=== PATIENT | male | born 1980 | race African-American/Black ===

== ENCOUNTER 2017-04-27 23:23 | Inpatient (IN) ==
[2017-04-27] MEDS ORDERED: ADENOSINE 6 MG/2 ML VIAL ONE ×3 (23:37→23:53)
[2017-04-27] MEDS: METOPROLOL TARTRATE 5 MG/5 ML VIAL IV SCH ×2 (23:40→23:53)
[2017-04-27] MEDS ORDERED: METOPROLOL TARTRATE 5 MG/5 ML VIAL IV ONE (23:45)
[2017-04-27] MEDS ORDERED: ADENOSINE 6 MG/2 ML VIAL IV STA ×2 (23:53)
--- NOTE | 2017-04-27 23:58 | Emergency Department Note ---
Arrival - Arrival Chief Complaint: Arrhythmia/Palpitations Stated Complaint: shortness of breath ED Nursing Triage Note: Patient to triage with c/o intermittent right upper chest pressure, "like gas pain" that has been going on for longer than 3 days and patient states that it is hard to breath at times. Patient's heart rate noted to be 148 while VS are taken in triage. EKG done in triage for this reason. Mode of Arrival: Ambulatory Limitations: No Limitations Source: Patient Time Seen by Provider: 04/27/17 23:53 - History of Present Illness HPI Narrative: This 36-year-old black male presents with a history of intermittent rapid heartbeat associated with right sided chest pressure without cough, hemoptysis, nausea, or vomiting. While in a rapid rate he does break out in a sweat however. He presents tonight for complaints of sustained rapid with nausea and dyspnea. The patient does have a history of sarcoidosis but no history of sarcoid related cardiac disease. Onset (ago): day(s) (Patient presents 3 days post onset of symptoms) Allergies/Adverse Reactions: Allergies Allergy/AdvReac Type Severity Reaction Status Date / Time Seafood AdvReac Unknown/Unable Verified 04/27/17 23:33 to obtain Home Medications: Home Medications Medication Instructions Recorded Confirmed Type Albuterol Sulfate [Ventolin HFA] 1 puff INH QID PRN 05/19/16 04/28/17 History Review of System - Review of System 12 point system: reviewed and no additional remarkable complaints except as stated - Review of System Constitutional: Present: as per HPI Respiratory: Present: as per HPI Cardiovascular: Present: as per HPI Gastrointestinal: Present: as per HPI Medical,Surgical,& Family Hx - Medical History Respiratory: History of: Respiratory Problems (sarcoidosis) - Social History Smoking Status: Never smoker Frequency of Alcohol Use: None Type of Drug Use: None Exam Physical Examination: GENERAL: Well developed, well nourished black male HEENT: Normocephalic. No trauma. Moist mucous membranes. EOMI. PERRLA. ENT NML NECK: Supple. No adenopathy. CARDIAC: Regular. No murmurs. Heart rate 145 CHEST: Clear to auscultation. No respiratory distress. O2 sat 96% ABDOMEN: Soft. Nontender. Active bowel sounds. EXTREMITIES: No trauma. Normal ROM. No pedal edema. SKIN: Forehead diaphoresis. No rash. NEURO: Alert. Neuro intact no focal deficits. Vital Signs: Vital Signs Temperature 96.9 F L 04/27/17 23:25 Pulse Rate 148 H 04/27/17 23:25 Respiratory Rate 20 04/27/17 23:37 Blood Pressure 131/112 04/27/17 23:25 O2 Sat by Pulse Oximetry 96 04/27/17 23:25 Course - Reevaluation(s) Reevaluation #1: Discussed with patient the results of his studies and the necessity of hospitalization for further evaluate his problems. - Consultations Consultation #1: Discussed with hospitalist who will admit for further evaluation and treatment. Results - Labs CBC & BMP: 04/27/17 23:39 04/27/17 23:39 Labs: I reviewed the laboratory and noted the elevated BMP - Impressions EKG #1: SVT at 145 with evidence of lateral and inferior ischemia characterized by T-wave inversion. Notable evidence of old anterior SD. EKG #2: Post adenosine: Sinus rhythm with occasional PVC. Left atrial enlargement. Old septal SD with diffuse nonspecific ST changes with no acute injury pattern noted. - Diagnostic Findings Procedure: Chest x-ray: image reviewed by me, report reviewed by me ( Cardiomegaly with evidence of pulmonary edema), CT: image reviewed by me, report reviewed by me (CTA: No evidence of PTE but significant severe adenopathy throughout the chest and neck) Disposition Clinical Impression: New-onset SVT, Sarcoidosis Case discussed with: patient Disposition: Still a Patient Condition: Guarded Time of Disposition: 02:08
[2017-04-28] MEDS: METOPROLOL TARTRATE 5 MG/5 ML VIAL IV SCH
[2017-04-28 00:05] LABS: Basophils % 0.6 % (0.0-0.8); Eosinophils # 0.1 10*3/uL (0.0-0.87); Eosinophils % 2.4 % (0.00-10.9); Hematocrit 40.1 VOL% (42.0-52.0); Hemoglobin 13.7 GM/DL (14.0-18.0); Immature Granulocytes % 0.4 %; Immature Granulocytes Absolute 0.02 #; Lymphocytes # 1.4 10*3/uL (1.4-4.0); Mean Corpuscular HGB Conc 34.2 GM/DL (32-36); Mean Corpuscular Hemoglobin 29 PG (27-34); Mean Corpuscular Volume 86.1 FL (87-102); Mean Platelet Volume 10.8 FL (9.6-12.0); Monocytes # 0.6 10*3/uL (0.11-0.8); Monocytes % 11.6 % (1.7-12.7); Neutrophils # 2.9 10*3/uL (1.4-7.4); Platelet Count 261 T/CUMM (130-400); Red Blood Count 4.66 MC/CUMM (3.8-5.5); Red Cell Distribution Width 13.6 % (9.3-17.3); White Blood Count 5.1 T/CUMM (4-12)
[2017-04-28] MEDS ORDERED: FUROSEMIDE 40 MG/4 ML VIAL IV STA (00:15)
[2017-04-28] MEDS ORDERED: METOPROLOL TARTRATE 5 MG/5 ML VIAL IV STA (00:17)
[2017-04-28] MEDS ORDERED: METOPROLOL TARTRATE 5 MG/5 ML VIAL IV ONE ×3 (00:17→10:30)
[2017-04-28 00:22] LABS: Troponin I Only < 0.015 NG/ML (0.00-0.045)
[2017-04-28 00:35] LABS: Albumin 3.9 G/DL (3.4-5.0); Bilirubin,Total 0.8 MG/DL (0.2-1.0); Calcium 9.1 MG/DL (8.5-10.1); Osmolality,Calculated 273.7 MOS/KG (273-304); Potassium 3.8 MMOL/L (3.5-5.1); Thyroid Stimulating Hormone 2.92 uIU/ml (0.358-3.74); Total Protein 8.6 G/DL (6.4-8.3)
[2017-04-28 00:51] LABS: D-Dimer 1.6 MG/L FEU; PT Patient Result 10.9 SECS
[2017-04-28] MEDS ORDERED: FUROSEMIDE 100 MG/10 ML VIAL ONE (01:39)
--- NOTE | 2017-04-28 02:33 | Hospitalist History & Physical ---
Assessment and Plan - Time spent with patient Time spent with patient: Greater than 30 minutes (1) Sarcoidosis Status: Acute Assessment and plan: Admit to hospitalist service Consult pulmonary Start community-acquired pneumonia coverage Reevaluate lymphadenopathy Consider steroids Obtain echocardiogram Consult cardiology regarding SVT episode Current Visit: Yes (2) Mediastinal lymphadenopathy due to sarcoidosis Status: Acute Current Visit: Yes (3) SVT (supraventricular tachycardia) Status: Acute Assessment and plan: Now in NSR at 80s Current Visit: Yes (4) Hypertension Status: Chronic Current Visit: Yes Qualifiers: Hypertension type: essential hypertension Qualified Code(s): I10 - Essential (primary) hypertension History of Present Illness Chief complaint: sob History of present illness: Mr. Miner is a 36 year old male presents with a history of intermittent rapid heartbeat associated with right sided chest pressure without cough, hemoptysis, nausea, or vomiting. While in a rapid rate he does break out in a sweat however. He presents tonight for complaints of sustained rapid with nausea and dyspnea. The patient does have a history of sarcoidosis but no history of sarcoid related cardiac disease. He was treated with adenosine and beta blockers for treatment of his SVT and has converted to a normal sinus rhythm with a pulse in the 80s. During the course of his workup in the emergency department he underwent a CT of the chest with IV contrast to rule out PE. There was no evidence of pulmonary embolism however changes consistent with sarcoid with questionable pneumonia and significant lymphadenopathy were noted. The patient's being admitted to the hospital to treat his worsening and progressive shortness of breath. He is followed by a taxi dancer at [facility] for sarcoidosis. He is on methotrexate and folic acid. He denies any fever or chills. Reports a slight productive cough. States his shortness of breath has been worsening over the last 3-4 days. He was not aware he was in SVT but did have chest discomfort that has now resolved. Home Medications Medication Instructions Recorded Confirmed Type Albuterol Sulfate [Ventolin HFA] 1 puff INH QID PRN 05/19/16 04/28/17 History Allergies Allergy/AdvReac Type Severity Reaction Status Date / Time Seafood AdvReac Unknown/Unable Verified 04/27/17 23:33 to obtain Medical,Surgical,& Family Hx - Medical History Respiratory: History of: Respiratory Problems (sarcoidosis) - Family History Family History: Reports;: Family Hypertension - Social History Smoking Status: Never smoker Frequency of Alcohol Use: None Type of Drug Use: None Marital Status: Single Lives With:: Alone Functional capacity: independent ambulation 12 point system: reviewed and no additional remarkable complaints except as stated - Respiratory Respiratory: Present: as per HPI, cough, dyspnea, dyspnea on exertion Exam - Constitutional Vitals: Period Temp Pulse Resp BP Sys/Jackson Pulse Ox Last 24 Hr 96.9 F-96.9 F 148-148 20-20 131-131/112-112 96 Exam: Constitutional System: No distress. No tremulousness. Head: Normocephalic, atraumatic. Ears, Nose and Throat System: No pain or tenderness. No epistaxis or discharge Eyes System: Pupils equal, round, and reactive. Extraocular muscles intact. Neck: Supple, without adenopathy, No jugular venous distention. No thyromegaly, neck mass, or prior surgery apparent. Respiratory System: Chest clear to auscultation. Cardiovascular System: Heart with regular rate and rhythm. No murmur. GI System: Abdomen soft, nontender. Normo active bowel sounds present. Musculoskeletal System: limbs with no pedal edema. Full distal pulses. Neurological System: No discernable sensory deficit. No aphasia Psychiatric System: Conversation is rational Results - Labs CBC & BMP: 04/27/17 23:39 04/27/17 23:39 Lab Results: I have reviewed the past 24 hour labs - Diagnostic Findings Procedure: Chest x-ray: report reviewed by me, image reviewed by me, CT - chest : report reviewed by me, image reviewed by me
[2017-04-28] MEDS ORDERED: ONDANSETRON 4 MG/2 ML VIAL IV PRN (02:36)
[2017-04-28] MEDS ORDERED: ZALEPLON 5 MG CAPSULE PO PRN (02:36)
[2017-04-28] MEDS ORDERED: ACETAMINOPHEN 325 MG TABLET PO PRN (02:36)
[2017-04-28] MEDS ORDERED: AZITHROMYCIN 250 MG TABLET PO ONE (02:39)
[2017-04-28 02:40] LABS: Apearance,Urine CLEAR (Clear); Bilirubin,Urine Negative (Negative); Blood, Urine Negative (Negative); Glucose,Urine (UA) Negative (Negative); Ketones,Urine Negative (Negative); Mucus,Urine Occasional /LPF (Occasional); Nitrite,Urine Negative (Negative); Protein,Urine Negative; RBC,Urine <1 /HPF (0-4); Squamous Epithelial Cell,Urine Occasional /HPF (0-10); Urine Color Straw (Yellow); Urine Specific Gravity 1.012 (1.001-1.035); Urine Urobilinogen < 2.0 EU/DL (0.2-1.0); WBC,Urine <1 /HPF (0-6)
[2017-04-28] MEDS ORDERED: ALBUTEROL/IPRATROPIUM 3 ML NEB RESP TX PRN ×2 (02:40)
[2017-04-28 02:47] LABS: Barbiturates Screen,Urine Negative (Negative); Benzodiazepines Screen,Urine Negative (Negative); Cannabinoid Screen,Urine Negative (Negative); Opiate Screen,Urine Negative (Negative); Phencyclidine Screen,Urine Negative (Negative)
[2017-04-28] MEDS ORDERED: AZITHROMYCIN 250 MG TABLET ONE (03:21)
[2017-04-28] MEDS: cefTRIAXone 1,000 MG in SODIUM CHLORIDE 0.9% 100 ML IV SCH (03:59)
[2017-04-28 06:10] LABS: Calcium 8.7 MG/DL (8.5-10.1); Osmolality,Calculated 274.7 MOS/KG (273-304); Potassium 3.7 MMOL/L (3.5-5.1); Risk Ratio 6.4; Thyroid Stimulating Hormone 2.96 uIU/ml (0.358-3.74)
--- NOTE | 2017-04-28 07:06 | XRay Report ---
XR chest 1V portable Indication: Shortness of breath Comparison: 23 July 2008 Findings: The heart and mediastinum are stable in size and configuration. The pulmonary vascularity is increased with bilateral increased interstitial lung density and faint alveolar patchy density present. No other lung infiltrates, effusions, pneumothorax or other abnormality is demonstrated. Impression: Findings suggest cardiac decompensation, underlying pneumonia cannot be excluded.. PROCEDURE INTERPRETED AT [facility] DEPARTMENT OF RADIOLOGY Final Report Signed by: Dr. Cam Prater
--- NOTE | 2017-04-28 07:42 | CT Report ---
CT chest pulmonary embolism Indication: Shortness of breath Comparison: None available Technique: Axial CT imaging of the chest is performed with intravenous contrast. Contrast dose is 80 cc of Omnipaque 350. Findings: No thrombus or other abnormality is identified in the pulmonary arteries or veins. The pulmonary vessel caliber is within normal limits. There are multiple enlarged lymph nodes are somewhat difficult to separate in the mediastinum most prominent in the pretracheal and subcarinal areas. Largest subcarinal area is estimated 4.1 x 2.3 cm although the borders are indistinct. Heart and great vessels appear within normal limits. Patchy airspace density is present in both lungs mostly within the lower lobes. Multiple mildly prominent lymph nodes are present in the axilla. Enlarged lymph nodes are present in the upper abdomen around the celiac axis and spleen, incompletely visualized No effusion or pneumothorax is present. Impression: No evidence of pulmonary thromboembolism. Multiple enlarged lymph nodes mostly in the mediastinum and upper abdomen. Airspace density in both lower lobes, could indicate lymphoma. This CT exam was performed using one or more the following dose reduction techniques: Automated exposure control, adjustment of the MA and/or KV according to patient size, or use of iterative reconstruction technique. PROCEDURE INTERPRETED AT [facility] DEPARTMENT OF RADIOLOGY Final Report Signed by: Dr. Cam Prater
--- NOTE | 2017-04-28 08:08 | Pulmonology Consult Note ---
Assessment and Plan (1) Sarcoidosis Status: Acute Assessment and plan: The patient comes in with acute changes with SVT and some shortness of breath. This may all be cardiac and his respiratory status may be stable. He is taking methotrexate once a week. Will just watch for now. Current Visit: Yes (2) SVT (supraventricular tachycardia) Status: Acute Assessment and plan: He is back in a sinus rhythm and will be evaluated by cardiology. Current Visit: Yes (3) Hypertension Status: Chronic Assessment and plan: His blood pressure and heart rate are stable now. Current Visit: Yes Qualifiers: Hypertension type: essential hypertension Qualified Code(s): I10 - Essential (primary) hypertension History of Present Illness Chief complaint: Shortness of breath History of present illness: Mr. Miner is a 36 year old black male has a long history of sarcoidosis and has been on methotrexate once a week. I have not seen him in the office in the past but not recently. He came in with sudden onset of rapid heartbeat and right-sided chest pain. He had a negative CT angiogram. He has not been having fever or coughing up a lot of sputum. He was found to have SVT. He has been converted back to sinus rhythm. He says he is feeling a little better now. He does have adenopathy and some interstitial lung disease from her sarcoid. He has mainly been followed in [place]. Home Medications Medication Instructions Recorded Confirmed Type Albuterol Sulfate [Ventolin HFA] 1 puff INH QID PRN 05/19/16 04/28/17 History Allergies Allergy/AdvReac Type Severity Reaction Status Date / Time Seafood AdvReac Unknown/Unable Verified 04/27/17 23:33 to obtain - Constitutional Constitutional: Absent: chills, fever(s), weight loss - EENT Eyes: Absent: loss of vision Ears: Absent: decreased hearing Nose, mouth and throat: Absent: dysphagia, headache(s), sinus pressure - Cardiovascular Cardiovascular: Present: chest pain at rest, dyspnea, palpitations. Absent: PND - Respiratory Respiratory: Present: cough, dyspnea, pain on inspiration. Absent: hemoptysis, change in phlegm color - Gastrointestinal Gastrointestinal: Absent: abdominal pain, change in bowel habits, dysphagia, nausea, vomiting - Genitourinary Genitourinary: Absent: difficulty urinating, dysuria, hematuria, urinary frequency - Musculoskeletal Musculoskeletal: Absent: arthralgias, muscle weakness - Neurological Neurological: Absent: abnormal speech, focal weakness, numbness, paresthesias - Psychiatric Psychiatric: Absent: anxiety Exam (Pulmonay) H&P - Constitutional Vitals: Period Temp Pulse Resp BP Sys/Jackson Pulse Ox Last 24 Hr 96.9 F-97.1 F 81-148 18-20 131-133/94-112 95-96 General appearance: no acute distress, over weight - Head Head exam: Present: normal inspection, normocephalic - Eye Eye exam: Present: EOMI. Absent: scleral icterus Pupils: Present: ZEKE - ENT ENT exam: Present: normal exam - Neck Neck exam: Present: normal inspection. Absent: lymphadenopathy, thyromegaly - Respiratory Respiratory exam: Present: other (The patient has minimal crackles in the bases) . Absent: accessory muscle use - Cardiovascular Cardiovascular exam: Present: regular rate and rhythm, other (He has some ectopy now.). Absent: gallop, systolic murmur - GI/Abdominal GI/Abdominal exam: Present: normal bowel sounds, soft. Absent: organomegaly, tenderness - Extremities Exam Extremities exam: Absent: calf tenderness, edema - Neurological Exam Neurological exam: Present: alert, oriented X3, CN II-XII intact - Psychiatric Psychiatric exam: Present: normal affect - Skin Skin exam: Present: warm, dry. Absent: rash Medical,Surgical,& Family Hx - Medical History Cardio: History of: Hypertension Psychological: No history of: Depression Respiratory: History of: Asthma, Respiratory Problems (sarcoidosis) - Family History Family History: Reports;: Family Diabetes (dad), Family Heart Disease (mother), Family Hypertension (mother, dad, sister) Denies;: Family Cancer, Family Hematology, Family Psychiatric Problems, Family Stroke - Social History Smoking Status: Never smoker Frequency of Alcohol Use: None Type of Drug Use: None Results - Labs CBC & BMP: 04/27/17 23:39 04/28/17 05:07 - Diagnostic Findings Procedure: Chest x-ray: image reviewed by me, report reviewed by me (His portable film does look a little worse with bilateral changes. It does suggest possible mild overload.), CT - chest: image reviewed by me, report reviewed by me (He does have adenopathy and some interstitial changes consistent with sarcoid.)
[2017-04-28] MEDS ORDERED: LABETALOL 20 MG/4 ML SYRINGE IV ONE (08:09)
[2017-04-28] MEDS: ENOXAPARIN 40 MG/0.4 ML SYRINGE SUBCUT SCH (08:23)
[2017-04-28] MEDS: PANTOPRAZOLE 40 MG TABLET PO SCH (08:23)
--- NOTE | 2017-04-28 08:44 | EKG Report ---
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
--- NOTE | 2017-04-28 08:45 | EKG Report ---
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
[2017-04-28] MEDS ORDERED: METOPROLOL TARTRATE 25 MG TABLET PO SCH (09:00)
--- NOTE | 2017-04-28 09:02 | Cardiology Consult Note ---
Assessment and Plan - Time spent with patient Time spent with patient: Greater than 30 minutes (due to assessment, plan, and documentation) (1) SVT (supraventricular tachycardia) Status: Acute Assessment and plan: See plan of care listed below. Current Visit: Yes (2) Sarcoidosis Status: Chronic Assessment and plan: See plan of care listed below. Current Visit: Yes (3) Hypertension Status: Chronic Assessment and plan: See plan of care listed below. Current Visit: Yes Qualifiers: Hypertension type: essential hypertension Qualified Code(s): I10 - Essential (primary) hypertension (4) Mediastinal lymphadenopathy due to sarcoidosis Status: Acute Assessment and plan: See plan of care listed below. Current Visit: Yes (5) Former smoker Status: Chronic Assessment and plan: See plan of care listed below. Current Visit: Yes (6) Dyslipidemia Status: Acute Assessment and plan: See plan of care listed below. Current Visit: Yes History of Present Illness - Data of Consult Patient: new to practice Consult date: 04/28/17 Requesting Physician: Jean Casas - Consult Narrative Reason for consult: SVT History of present illness: Risk Compliance Analyst: none, new to Dr. Fernandez Account Management Assistant: Dr. Boudreaux Mr. Miner is a 36 year old male with a history of hypertension, sarcoidosis. Risk factors are significant for: Hypertension, family history of premature CAD, former tobacco use. Mr. Miner tells me that he quit smoking 7 years ago when he was diagnosed with sarcoidosis. He is followed primarily by a talent director at [facility] in [place]. He has been on methotrexate and folic acid. He states he has taken Norvasc in the past for his high blood pressure. He presented to the emergency room with complaints of intermittent rapid heartbeat associated with right-sided chest pressure. He has associated symptoms of nausea and dyspnea. He reports he has been noticing this for the past 4 days. He states that when he has been at work and has had 2 really exert himself, he has noticed some dyspnea and palpitations with racing heartbeat. He reports that prior to this he has had no exertional anginal symptoms. He denies any recent BLE edema. He was noted to have rates in the 140s upon admission and was given adenosine and beta blockers and rates improved to the 80s. 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 We'll give IV beta monty now and start him on PO beta monty. Echocardiogram has been ordered. TSH free T4 were normal. Potassium is 3.7, creatinine 1.1, magnesium 2.0. Chest CT revealed no evidence of pulmonary thromboembolism, multiple enlarged lymph nodes mostly in the mediastinum and upper abdomen, and airspace density in both lower lobes. Initial cardiac biomarkers were negative. EKG showed sinus tachycardia with rates in the 140s and ST-T abnormality with T-wave inversions inferolaterally. ASSESSMENT/PLAN: 1. SINUS TACH/SVT - Rates in the 120s-130s this morning. Will give IV beta monty. Will start on Metoprolol 25mg PO BID. Will continue to monitor vital signs and adjust medications accordingly. 2. SARCOIDOSIS - He was started on community-acquired pneumonia coverage. Pulmonology has been consulted. 3. HYPERTENSION - Currently well controlled. Has had some borderline elevated readings. Will continue to monitor and adjust accordingly. 4. MEDIASTINAL LYMPHADENOPATHY - Due to sarcoidosis. Pulmonology has been consulted. 5. FORMER TOBACCO USE - Quit 7 years ago when diagnosed with sarcoidosis. 6. HYPERLIPIDEMIA - Lipid panel revealed triglycerides 185, cholesterol 224, LDL 155, HDL 35. Alkaline phos 236. Will obtain hepatitis panel and GGT and further discuss with Dr. Fernandez prior to initiating lipid lowering agent. CC: Jackie Greene MD - Home Medications and Allergies Home Medications: Home Medications Medication Instructions Recorded Confirmed Type Albuterol Sulfate [Ventolin HFA] 1 puff INH QID PRN 05/19/16 04/28/17 History Allergies/Adverse Reactions: Allergies Allergy/AdvReac Type Severity Reaction Status Date / Time Seafood AdvReac Unknown/Unable Verified 04/27/17 23:33 to obtain Review of systems: - Constitutional: Present: As per HPI. Absent: anorexia, chills, daytime sleepiness, excessive sweating, fever(s), frequent falls, headache(s), increased appetite, lethargy, malaise, night sweats, stops breathing during sleep, weakness, weight gain, weight loss, fatigue. - EENT Eyes: Present: As per HPI. Absent: blurry vision, diplopia, loss of vision Ears: Present: As per HPI. Absent: decreased hearing, ear discharge, ear pain Nose, mouth and throat: Present: As per HPI. Absent: dysphagia, epistaxis, headache(s), hoarseness, lip swelling, nasal congestion, neck mass, neck pain, sinus pressure, sore throat, throat swelling, tongue swelling, vertigo - Cardiovascular: Present: chest pain at rest, dyspnea, dyspnea on exertion, palpitations, as per HPI. Absent: chest pain with activity, edema, claudication , diaphoresis, radiating jaw, neck or arm pain, lightheadedness, orthopnea, PND - Respiratory: Present:dyspnea, dyspnea on exertion, as per HPI. Absent: cough , hemoptysis, wheezing, snoring, pain on inspiration - Gastrointestinal: Present: nausea, As per HPI. Absent: abdominal pain, bloating, change in bowel habits, constipation, diarrhea, heartburn, hematemesis , hematochezia, loose stools, melena, vomiting - Genitourinary: Present: As per HPI. Absent: difficulty urinating, dysuria, flank pain, hematuria, nocturia, urinary frequency, urinary incontinence - Musculoskeletal: Present: As per HPI. Absent: arthralgias, back pain, joint swelling, limited range of motion, muscle cramps, muscle weakness, myalgias - Neurological: Present: As per HPI. Absent: abnormal gait, abnormal speech, behavioral changes, confusion, convulsions, disequilibrium, dizziness, focal weakness, frequent falls, headache(s), memory loss, numbness, paresthesias, radicular pain, syncope, tremor(s) - Psychiatric: Present: As per HPI. Absent: anxiety, confusion, depression, panic attacks - Endocrine: Present: As per HPI. Absent: cold intolerance, fatigue, heat intolerance, polydipsia, polyphagia - Hematologic/Lymphatic: Present: As per HPI. Absent: easy bleeding, easy bruising, lymphadenopathy Medical,Surgical,& Family Hx - Medical History Cardio: History of: Hypertension Psychological: No history of: Depression Respiratory: History of: Asthma, Respiratory Problems (sarcoidosis) - Family History Family History: Reports;: Family Diabetes (dad), Family Heart Disease (mother), Family Hypertension (mother, dad, sister) Denies;: Family Cancer, Family Hematology, Family Psychiatric Problems, Family Stroke - Social History Smoking Status: Never smoker Frequency of Alcohol Use: None Type of Drug Use: None Marital Status: Lives With:: Spouse Functional capacity: independent ambulation Physical Examination Vital Signs Temp Pulse Resp BP Pulse Ox 96.9 F L 148 H 20 131/112 96 04/27/17 23:25 04/27/17 23:25 04/27/17 23:25 04/27/17 23:25 04/27/17 23:25 Exam: General appearance: Pleasant and cooperative. Overweight, no acute distress. Head exam: Present: normal inspection, normocephalic, atraumatic. Absent: hematoma, laceration Eye exam: Present: EOMI. Absent: conjunctival injection, nystagmus, periorbital swelling, scleral icterus, laceration to eyelids Pupils: Present: PERRL. Absent: constricted, dilated, fixed, irregular, unequal ENT exam: Present: normal exam, normal external ear exam Neck exam: Present: normal inspection. Absent: lymphadenopathy, meningismus, tenderness, thyromegaly, carotid bruit Respiratory exam: Present: clear to auscultation bilaterally. Absent: accessory muscle use, chest wall tenderness, rales, rhonchi, wheezing. Cardiovascular exam: Present: regular rate and rhythm, tachycardia. Absent: gallop, JVD, rubs, murmur GI/Abdominal exam: Present: normal bowel sounds, soft. Absent: distended, firm , guarding, hernia, mass, tenderness, rebound. Extremities exam: Present: normal inspection, normal capillary refill. Upper extremity pulses 2+. Lower extremity pulses 2+. Absent: calf tenderness, edema Musculoskeletal: Present: No Fluid Collection, No Pain, Normal Range of Motion Back exam: Present: normal inspection. Absent: muscle spasm, vertebral tenderness Neurological exam: Present: alert, oriented X3, grossly intact without resting or essential tremor Psychiatric exam: Present: normal affect, normal mood Skin exam: Present: normal color, warm, dry, intact. Absent: cyanosis, diaphoretic, rash, urticaria Result/EKG - Labs CBC & BMP: 04/27/17 23:39 04/28/17 05:07 Lab Results: I have reviewed the past 24 hour labs Labs: Laboratory Results - last 24 hr 04/27/17 04/27/17 04/27/17 23:39 23:39 23:39 WBC 5.1 RBC 4.66 Hgb 13.7 L Hct 40.1 L MCV 86.1 L MCH 29 MCHC 34.2 RDW 13.6 Plt Count 261 MPV 10.8 Neut % (Auto) 58.0 Lymph % (Auto) 27.0 [place] % (Auto) 11.6 Eos % (Auto) 2.4 Baso % (Auto) 0.6 Neut # (Auto) 2.9 Lymph # (Auto) 1.4 [place] # (Auto) 0.6 Eos # (Auto) 0.1 Baso # (Auto) 0.0 Immature Gran % 0.4 Nucleated RBC % 0.0 Immature Gran # 0.02 Nucleated RBCs # 0.00 Immature Plt Fraction 0.0 INR PT Patient/Control Mix D-Dimer, Quantitative Circ Anticoag PTT Sodium 138 Potassium 3.8 Chloride 105 Carbon Dioxide 26 Anion Gap 10.8 BUN 11 Creatinine 1.20 GFR Calculation 125 BUN/Creatinine Ratio 9.00 Glucose 101 Hemoglobin A1c Calculated Osmolality 273.7 Calcium 9.1 Magnesium Total Bilirubin 0.80 AST 40 H ALT 59 Alkaline Phosphatase 236 H Total Creatine Kinase 192 CK-MB (CK-2) 1.3 Troponin I < 0.015 B-Natriuretic Peptide Total Protein 8.6 H Albumin 3.9 Globulin 4.7 H Albumin/Globulin Ratio 0.8 L Triglycerides Cholesterol LDL Cholesterol VLDL Cholesterol HDL Cholesterol Heart Disease Risk Ratio Free T4 TSH 3rd Generation 2.920 Urine Color Urine Appearance Urine pH Ur Specific [place] Urine Protein Urine Glucose (UA) Urine Ketones Urine Blood Urine Nitrate Urine Bilirubin Urine Urobilinogen Urine Leukocytes Urine RBC Urine WBC Ur Squamous Epith Cells Urine Mucus Ur Culture Indicated? Urine Opiates Screen Ur Barbiturates Screen Ur Phencyclidine Scrn U Amphetamine/Methamph U Benzodiazepines Scrn U Cocaine Metab Screen U Cannabinoids Screen 04/28/17 04/28/17 04/28/17 00:00 00:00 00:12 WBC RBC Hgb Hct MCV MCH MCHC RDW Plt Count MPV Neut % (Auto) Lymph % (Auto) [place] % (Auto) Eos % (Auto) Baso % (Auto) Neut # (Auto) Lymph # (Auto) [place] # (Auto) Eos # (Auto) Baso # (Auto) Immature Gran % Nucleated RBC % Immature Gran # Nucleated RBCs # Immature Plt Fraction INR 1.0 PT Patient/Control Mix 10.9 D-Dimer, Quantitative 1.6 Circ Anticoag PTT 37.0 Sodium Potassium Chloride Carbon Dioxide Anion Gap BUN Creatinine GFR Calculation BUN/Creatinine Ratio Glucose Hemoglobin A1c Calculated Osmolality Calcium Magnesium Total Bilirubin AST ALT Alkaline Phosphatase Total Creatine Kinase CK-MB (CK-2) Troponin I B-Natriuretic Peptide 208 H Total Protein Albumin Globulin Albumin/Globulin Ratio Triglycerides Cholesterol LDL Cholesterol VLDL Cholesterol HDL Cholesterol Heart Disease Risk Ratio Free T4 1.00 TSH 3rd Generation Urine Color Urine Appearance Urine pH Ur Specific [place] Urine Protein Urine Glucose (UA) Urine Ketones Urine Blood Urine Nitrate Urine Bilirubin Urine Urobilinogen Urine Leukocytes Urine RBC Urine WBC Ur Squamous Epith Cells Urine Mucus Ur Culture Indicated? Urine Opiates Screen Ur Barbiturates Screen Ur Phencyclidine Scrn U Amphetamine/Methamph U Benzodiazepines Scrn U Cocaine Metab Screen U Cannabinoids Screen 04/28/17 04/28/17 04/28/17 02:23 02:23 05:07 WBC RBC Hgb Hct MCV MCH MCHC RDW Plt Count MPV Neut % (Auto) Lymph % (Auto) [place] % (Auto) Eos % (Auto) Baso % (Auto) Neut # (Auto) Lymph # (Auto) [place] # (Auto) Eos # (Auto) Baso # (Auto) Immature Gran % Nucleated RBC % Immature Gran # Nucleated RBCs # Immature Plt Fraction INR PT Patient/Control Mix D-Dimer, Quantitative Circ Anticoag PTT Sodium 138 Potassium 3.7 Chloride 106 Carbon Dioxide 23 Anion Gap 12.7 BUN 11 Creatinine 1.10 GFR Calculation 132 BUN/Creatinine Ratio 10.00 Glucose 112 H Hemoglobin A1c Calculated Osmolality 274.7 Calcium 8.7 Magnesium 2.0 Total Bilirubin AST ALT Alkaline Phosphatase Total Creatine Kinase CK-MB (CK-2) Troponin I B-Natriuretic Peptide Total Protein Albumin Globulin Albumin/Globulin Ratio Triglycerides 185 H Cholesterol 224 H LDL Cholesterol 155.0 VLDL Cholesterol 37.0 HDL Cholesterol 35 L Heart Disease Risk Ratio 6.40 Free T4 TSH 3rd Generation 2.960 Urine Color Straw Urine Appearance Clear Urine pH 6.0 Ur Specific [place] 1.012 Urine Protein Negative Urine Glucose (UA) Negative Urine Ketones Negative Urine Blood Negative Urine Nitrate Negative Urine Bilirubin Negative Urine Urobilinogen < 2.0 H Urine Leukocytes Negative Urine RBC <1 Urine WBC <1 Ur Squamous Epith Cells Occasional Urine Mucus Occasional Ur Culture Indicated? Not indicated Urine Opiates Screen Negative Ur Barbiturates Screen Negative Ur Phencyclidine Scrn Negative U Amphetamine/Methamph Negative U Benzodiazepines Scrn Negative U Cocaine Metab Screen Negative U Cannabinoids Screen Negative 04/28/17 04/28/17 05:07 05:07 WBC RBC Hgb Hct MCV MCH MCHC RDW Plt Count MPV Neut % (Auto) Lymph % (Auto) [place] % (Auto) Eos % (Auto) Baso % (Auto) Neut # (Auto) Lymph # (Auto) [place] # (Auto) Eos # (Auto) Baso # (Auto) Immature Gran % Nucleated RBC % Immature Gran # Nucleated RBCs # Immature Plt Fraction INR PT Patient/Control Mix D-Dimer, Quantitative Circ Anticoag PTT Sodium Potassium Chloride Carbon Dioxide Anion Gap BUN Creatinine GFR Calculation BUN/Creatinine Ratio Glucose Hemoglobin A1c 6.2 Calculated Osmolality Calcium Magnesium Total Bilirubin AST ALT Alkaline Phosphatase Total Creatine Kinase CK-MB (CK-2) Troponin I B-Natriuretic Peptide Total Protein Albumin Globulin Albumin/Globulin Ratio Triglycerides Cholesterol LDL Cholesterol VLDL Cholesterol HDL Cholesterol Heart Disease Risk Ratio Free T4 1.09 TSH 3rd Generation Urine Color Urine Appearance Urine pH Ur Specific [place] Urine Protein Urine Glucose (UA) Urine Ketones Urine Blood Urine Nitrate Urine Bilirubin Urine Urobilinogen Urine Leukocytes Urine RBC Urine WBC Ur Squamous Epith Cells Urine Mucus Ur Culture Indicated? Urine Opiates Screen Ur Barbiturates Screen Ur Phencyclidine Scrn U Amphetamine/Methamph U Benzodiazepines Scrn U Cocaine Metab Screen U Cannabinoids Screen - EKG EKG results: interpreted by me, sinus rhythm EKG shows: tachycardia
--- NOTE | 2017-04-28 09:28 | EKG Report ---
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
[2017-04-28 10:10] LABS: Albumin 3.6 G/DL (3.4-5.0); Bilirubin,Direct 0.2 MG/DL (0.0-0.20); Bilirubin,Indirect 0.8 MG/DL (0.0-1.0); Total Protein 8.1 G/DL (6.4-8.3)
--- NOTE | 2017-04-28 11:29 | ECHO Report ---
Carlos Miner Exam Date: 04/28/2017 09:07 Referring Physician: Technologist: Debbie Welch RDCS Age: 36 Ht (in): 75 Wt (lb): 255 Gender: M Exam Location: [facility] Echo Indications: Shortness of breath, Essential (primary) hypertension, SVT, Sarcoidosis BP: 132 / 96 HR: 127 Rhythm: Sinus Technical Quality: IMPRESSIONS Normal left ventricular size, with mild concentric hypertrophy. The basal septum, anteroseptum is hypokinetic, the remaining segments have normal systolic thickening. Estimated left ventricular ejection fraction 45%. Mild eccentric mitral regurgitation. Borderline pulmonary hypertension. Study was done during SVT, which may affect assessment of wall motion. MEASUREMENTS (Male / Female) Normal Values 2D ECHO LV Diastolic Diameter PLAX 4.1 cm 4.2 - 5.9 / 3.9 - 5.3 cm LV Systolic Diameter PLAX 3.6 cm LV Fractional Shortening PLAX 11.3 % IVS Diastolic Thickness 1.5 cm 0.6 - 1.0 / 0.6 - 0.9 cm LVPW Diastolic Thickness 1.6 cm 0.6 - 1.0 / 0.6 - 0.9 cm RV Internal Dim ED PLAX 3.5 cm Aortic Root Diameter 3.3 cm LA Systolic Diameter LX 4.7 cm 3.0 - 4.0 / 2.7 - 3.8 cm DOPPLER TR Peak Velocity 304.0 cm/s TR Peak Gradient 37.0 mmHg FINDINGS Left Ventricle Normal left ventricular size, with mild concentric hypertrophy. The basal septum, anteroseptum is hypokinetic, the remaining segments have normal systolic thickening. Estimated left ventricular ejection fraction 45%. Unable to estimate diastolic function, patient is in SVT. Right Ventricle The right ventricle is normal in size and function. Right Atrium The right atrium is normal in size. Left Atrium The left atrium is normal in size. Mitral Valve Morphologically normal mitral valve. Mild eccentric mitral valve regurgitation. Aortic Valve Morphologically normal aortic valve without significant sclerosis or stenosis. There is no aortic regurgitation. Tricuspid Valve Morphologically normal tricuspid valve. Mild tricuspid valve regurgitation. Tricuspid regurgitation velocities suggest a PAP of 37 mmHg plus right atrial pressure. Pulmonic Valve Morphologically normal pulmonic valve without significant stenosis. There is no pulmonic regurgitation. Pericardium Normal pericardium without effusion. Aorta Normal ascending aorta dimension. Yahir Fernandez (Electronically Signed) Final Date: 28 April 2017 11:28
--- NOTE | 2017-04-28 12:36 | Hospitalist Progress Note ---
Assessment and Plan (1) Sarcoidosis Status: Chronic Assessment and plan: 1)SVT- for ablation tomorrow. Keep him in CCU for now. Dr Fernandez recommends avoiding Beta blockers and CCB for now- may need procaine. 2)potential cardiac sarcoid- outpatient cardiac MRI and stress test when SVT controlled. Echo with wall motion abnormality, but Dr Fernandez doubts CAD, more likely cardiac sarcoid. 3)pulmonary sarcoid- continue MTX. No resp distress. followed at [facility]. Current Visit: Yes (2) Mediastinal lymphadenopathy due to sarcoidosis Status: Acute Current Visit: Yes (3) SVT (supraventricular tachycardia) Status: Acute Current Visit: Yes (4) Hypertension Status: Chronic Current Visit: Yes Qualifiers: Hypertension type: essential hypertension Qualified Code(s): I10 - Essential (primary) hypertension (5) Former smoker Status: Chronic Current Visit: Yes (6) Dyslipidemia Status: Acute Current Visit: Yes Hospitalist: Subjective Interval history: Mr Miner is feeling better this morning, though he continues to have SVT despite IV and oral beta blockers and CCB. Dr Fernandez plans EP study and ablation in the morning. Will keep him in ICU for now. No chest pain, no shortness of breath. He feels a fullness in his chest when his heart rate is in the 120s or higher. Exam - Constitutional Vitals: Period Temp Pulse Resp BP Sys/Jackson Pulse Ox Last 24 Hr 96.9 F-97.6 F 81-148 18-20 125-133/85-112 95-96 General appearance: no acute distress, over weight - Head Head exam: Present: normocephalic, atraumatic - Eye Eye exam: Present: EOMI. Absent: scleral icterus - Respiratory Respiratory exam: Present: clear to auscultation bilaterally - Cardiovascular Cardiovascular exam: Present: regular rate and rhythm, tachycardia - GI/Abdominal GI/Abdominal exam: Present: normal bowel sounds, soft. Absent: tenderness - Extremities Exam Extremities exam: Absent: edema Results - Labs CBC & BMP: 04/27/17 23:39 04/28/17 05:07 Lab Results: I have reviewed the past 24 hour labs
[2017-04-28] MEDS: ASPIRIN EC 81 MG TABLET PO SCH (14:10)
[2017-04-29] MEDS: cefTRIAXone 1,000 MG in SODIUM CHLORIDE 0.9% 100 ML IV SCH (04:40)
[2017-04-29 05:33] LABS: Basophils % 0.5 % (0.0-0.8); Eosinophils # 0.2 10*3/uL (0.0-0.87); Eosinophils % 3.7 % (0.00-10.9); Hematocrit 38.5 VOL% (42.0-52.0); Hemoglobin 13.2 GM/DL (14.0-18.0); Immature Granulocytes % 0.5 %; Immature Granulocytes Absolute 0.02 #; Lymphocytes # 0.8 10*3/uL (1.4-4.0); Lymphocytes % 17.7 % (21.2-54.2); Mean Corpuscular HGB Conc 34.3 GM/DL (32-36); Mean Corpuscular Hemoglobin 29 PG (27-34); Mean Corpuscular Volume 85.6 FL (87-102); Monocytes # 0.6 10*3/uL (0.11-0.8); Monocytes % 13.1 % (1.7-12.7); Neutrophils # 2.8 10*3/uL (1.4-7.4); Neutrophils % 64.5 % (38.7-73.9); Platelet Count 237 T/CUMM (130-400); Red Cell Distribution Width 13.5 % (9.3-17.3); White Blood Count 4.3 T/CUMM (4-12)
[2017-04-29 06:09] LABS: Calcium 8.9 MG/DL (8.5-10.1); Magnesium 2.1 MG/DL (1.8-2.4); Osmolality,Calculated 276.5 MOS/KG (273-304); Potassium 3.8 MMOL/L (3.5-5.1)
[2017-04-29 06:29] LABS: Hypochromasia Slight; Lymphocytes 13 % (20-55); Microcytosis 1+; Platelet Estimate Adequate; Segmented Neutrophils 74 % (50-85); Total Cells Counted 100
--- NOTE | 2017-04-29 07:37 | History and Physical Update ---
Sedation H&P Update - History and Physical H&P was reviewed, the patient examined and there: are no changes in the patients condition since last H&P was completed. - Dictation Physical: refer to H&P completed by admitting physician - Physical Exam Mental Status: alert and oriented Heart: other (tachy) Lung: clear to auscultation Abdomen: within normal limits Vitals: within normal limits - Sedation Plan for Sedation: moderate Patient Consent: Procedure disscussed with patient and patinet has consented., Risks and benefits were discussed with patient,including infection,, bleeding, injury to surrounding structures, seizure, temporary nerve, Patient understands and accepts potential risks/benefits and agrees to ASA Class: IV Airway Assessment: Class III: Soft palate, base of uvula visible
--- NOTE | 2017-04-29 07:43 | Pulmonology Progress Note ---
Pulmonary - PN: Subj Interval history: The patient is a 36-year-old black man with a long history of sarcoid. He is on methotrexate weekly. He has mainly followed at [facility]. He comes in with SVT and continues to have tachyarrhythmias. He is going for an AV node ablation today. He says he is breathing comfortably at present. Exam (Progress Note) - Constitutional Vitals: Period Temp Pulse Resp BP Sys/Jackson Pulse Ox Last 24 Hr 97.6 F-98.9 F 94-135 15-22 109-154/77-119 92-96 Exam: General appearance: no acute distress, over weight, he looks reasonably comfortable although his heart rate is 140. - Head Head exam: Present: normal inspection, normocephalic - Eye Eye exam: Present: EOMI. Absent: scleral icterus Pupils: Present: ZEKE - ENT ENT exam: Present: normal exam - Neck Neck exam: Present: normal inspection. Absent: lymphadenopathy, thyromegaly - Respiratory Respiratory exam: Present: other (The patient has minimal crackles in the bases) . He has good breath sounds bilaterally. Absent: accessory muscle use - Cardiovascular Cardiovascular exam: Present: regular rate and rhythm, he has a tachycardia now. Absent: gallop, systolic murmur - GI/Abdominal GI/Abdominal exam: Present: normal bowel sounds, soft. Absent: organomegaly, tenderness - Extremities Exam Extremities exam: Absent: calf tenderness, edema - Neurological Exam Neurological exam: Present: alert, oriented X3, CN II-XII intact - Psychiatric Psychiatric exam: Present: normal affect - Skin Skin exam: Present: warm, dry. Absent: rash Results - Labs CBC & BMP: 04/29/17 04:49 04/29/17 04:49 Assessment and Plan (1) Sarcoidosis Status: Chronic Assessment and plan: The patient comes in with acute changes with SVT and some shortness of breath. This may all be cardiac and his respiratory status may be stable. He is taking methotrexate once a week. He is having problems with his heart rate. He is going for an AV node ablation. Current Visit: Yes (2) SVT (supraventricular tachycardia) Status: Acute Assessment and plan: He continues to have tachyarrhythmias and cardiology is evaluating. He is having an AV node ablation today. Current Visit: Yes (3) Hypertension Status: Chronic Assessment and plan: His blood pressure is on the high side at times. Current Visit: Yes Qualifiers: Hypertension type: essential hypertension Qualified Code(s): I10 - Essential (primary) hypertension
[2017-04-29] MEDS ORDERED: HEPARIN/NACL 0.9% 2 UNITS/ML 500 ML IV ONE (07:49)
[2017-04-29] MEDS ORDERED: LIDOCAINE 1% 20 ML VIAL ONE (07:49)
[2017-04-29] MEDS ORDERED: fentaNYL 100 MCG/2 ML VIAL ONE ×2 (07:51→08:43)
[2017-04-29] MEDS ORDERED: MIDAZOLAM 2 MG/2 ML VIAL ONE ×2 (07:51→08:43)
[2017-04-29] MEDS ORDERED: HEPARIN 5,000 UNIT/1 ML VIAL ONE (09:23)
[2017-04-29] MEDS ORDERED: ISOPROTERENOL 1 MG/5 ML VIAL IV ONE (09:35)
[2017-04-29] MEDS ORDERED: MORPHINE 2 MG/1 ML SYRINGE IV PRN (09:57)
--- NOTE | 2017-04-29 10:18 | Electrophysiology Report ---
Date of Procedure:: 04/29/17 Pre-op diagnosis: PSVT Post-op diagnosis: same Procedure: PROCEDURAL SUMMARY EP study with ablation of atypical AV amy reentry tachycardia (slow pathway ablation). Successful procedure, no complications. PLAN Bed rest for 4 hours. Cont ASA 81 mg qd DIAGNOSES PSVT (atypical AVNRT) PROCEDURE REPORT A timeout was performed before the procedure. Sedation Conscious sedation was initiated with Versed + Fentanyl and maintained during the procedure. Anticoagulation Iv. heparin 5000U was administered. Access The Seldinger technique was performed utilizing a 21 gauge micropuncture needle and 0.[address] the following sheaths. RFV: 8 Fr RFV: 9 Fr LFV: 9 Fr LFV: 8 Fr LFV: 6 Fr Catheters used -Diagnostic His catheter His recording and pacing -Decapolar deflectable CS catheter - CS recording and pacing -Ablation catheter: [employer] [facility] NaviStar RA, RV recording, pacing and ablation. Electrophysiologic Study - baseline Baseline ECG: sinus rhythm, RR 570 ms. ID 174, QRS 105, QT 352 ms. There was no preexcitation. Occasional PVCs. Frequent sustained runs of regular SVT were noted. The catheters were introduced under electroanatomical guidance. A 3D fast anatomical map of the right atrium was constructed with CARTO. The CS and His positions were marked. AH 97 ms, HV 52 ms. Sustained SVT was noted, initiated by PVCs, conducted retrograde, earliest atrial activation in CS 9-10. Similarly, ventricular pacing during Wenckebach initiated the same SVT, with similar mechanism of initiation. TCL 373 ms, VA 200 ms. The arrhythmia was entrained from the RV. PPI 536, TCL 378, SA 348, VA 220 ms. His refractory PVCs did not advance the A during SVT. The arrhythmia mechanism was concluded as atypical AV amy reentry tachycardia. Ablation - slow pathway ablation Using electrical and CARTO 3D guidance, lesions were delivered in the slow pathway region, at 55 Celsius, 35 W energy. No AV or VA block was noted during sinus rhythm. No junctional acceleration was noted. Follow up EP study, EP study during drug infusion During a 20 minute observation period, the AVNRT remained non-inducible with burst and programmed atrial and ventricular extrastimulation. Occasional PVCs were noted. IV Isuprel was started. The AVNRT remained noninducible with burst and programmed extrastimulation. The Isuprel was stopped. No VA conduction at 500 ms ventricular pacing. AV Wenckebach 320 ms. Anterograde conduction decremental, concentric. AV may ERP 500/220 ms. No AH jump or echo beats. AH 99 ms, HV 39 ms. End of the procedure The catheters were removed and the sheaths were pulled. Manual compression was applied until hemostasis was achieved. There were no complications. PROCEDURE(S) 1. Comprehensive electrophysiologic evaluation including insertion and repositioning of multiple electrode catheters with induction or attempted induction of an arrhythmia with right atrial pacing and recording, right ventricular pacing and recording (when necessary), His bundle recording (when necessary) with intracardiac catheter ablation of arrhythmogenic focus; with treatment of supraventricular tachycardia by ablation of fast or slow atrioventricular pathway, accessory atrioventricular connection, cavo-tricuspid isthmus or other single atrial focus or source of atrial re-entry 2. Programmed stimulation and pacing after intravenous drug infusion 3. Intracardiac electrophysiologic three-dimensional mapping 4. Moderate conscious sedation, 90 Anesthesia: moderate conscious sedation Surgeon / Physician: Yahir Fernandez Party Chief: other (Jeremy) Estimated blood loss: minimal Specimens: none sent Condition: stable Disposition: ICU/CCU
[2017-04-29] MEDS: ENOXAPARIN 40 MG/0.4 ML SYRINGE SUBCUT SCH (11:07)
[2017-04-29] MEDS: PANTOPRAZOLE 40 MG TABLET PO SCH (11:07)
[2017-04-29] MEDS: AZITHROMYCIN 250 MG TABLET PO SCH (11:07)
[2017-04-29] MEDS: ASPIRIN EC 81 MG TABLET PO SCH (11:07)
--- NOTE | 2017-04-29 15:57 | Hospitalist Progress Note ---
Assessment and Plan (1) Sarcoidosis Status: Chronic Assessment and plan: 1)SVT-had ablation, doing well. 2)potential cardiac sarcoid- outpatient cardiac MRI and stress test when SVT controlled. Echo with wall motion abnormality, but Dr Fernandez doubts CAD, more likely cardiac sarcoid. 3)pulmonary sarcoid- continue MTX. No resp distress. followed at [facility]. Current Visit: Yes (2) Mediastinal lymphadenopathy due to sarcoidosis Status: Acute Current Visit: Yes (3) SVT (supraventricular tachycardia) Status: Acute Current Visit: Yes (4) Hypertension Status: Chronic Current Visit: Yes Qualifiers: Hypertension type: essential hypertension Qualified Code(s): I10 - Essential (primary) hypertension (5) Former smoker Status: Chronic Current Visit: Yes (6) Dyslipidemia Status: Acute Current Visit: Yes Hospitalist: Subjective Interval history: Mr Miner had successful ablation this morning. He has had no problems since and is resting in the CCU comfortably. Exam - Constitutional Vitals: Period Temp Pulse Resp BP Sys/Jackson Pulse Ox Last 24 Hr 97.6 F-98.9 F 93-135 13-22 102-154/61-119 91-98 General appearance: no acute distress, over weight - Head Head exam: Present: normocephalic, atraumatic - Eye Eye exam: Present: EOMI. Absent: scleral icterus - Respiratory Respiratory exam: Present: clear to auscultation bilaterally - Cardiovascular Cardiovascular exam: Present: regular rate and rhythm - GI/Abdominal GI/Abdominal exam: Present: normal bowel sounds, soft. Absent: tenderness - Extremities Exam Extremities exam: Absent: edema Results - Labs CBC & BMP: 04/29/17 04:49 04/29/17 04:49 Lab Results: I have reviewed the past 24 hour labs
--- NOTE | 2017-04-29 16:21 | EKG Report ---
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
--- NOTE | 2017-04-29 18:39 | EKG Report ---
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
[2017-04-29] MEDS ORDERED: METOPROLOL TARTRATE 5 MG/5 ML VIAL IV ONE (19:08)
--- NOTE | 2017-04-29 19:10 | Event Note ---
Mildly symptomatic ventricular bigeminy noted. High suspicion that he may have sarcoid involvement of his heart. Metoprolol 5 mg IV. Start metoprolol 50 mg twice daily.
[2017-04-29] MEDS: METOPROLOL TARTRATE 50 MG TABLET PO SCH (20:56)
[2017-04-30 04:05] LABS: Basophils % 0.4 % (0.0-0.8); Eosinophils # 0.1 10*3/uL (0.0-0.87); Eosinophils % 2.1 % (0.00-10.9); Hemoglobin 12.4 GM/DL (14.0-18.0); Immature Granulocytes % 0.2 %; Immature Granulocytes Absolute 0.01 #; Lymphocytes # 0.6 10*3/uL (1.4-4.0); Lymphocytes % 12.4 % (21.2-54.2); Mean Corpuscular HGB Conc 34.4 GM/DL (32-36); Mean Corpuscular Hemoglobin 30 PG (27-34); Mean Corpuscular Volume 86.7 FL (87-102); Monocytes # 0.7 10*3/uL (0.11-0.8); Monocytes % 13.8 % (1.7-12.7); Neutrophils # 3.4 10*3/uL (1.4-7.4); Neutrophils % 71.1 % (38.7-73.9); Platelet Count 204 T/CUMM (130-400); Red Blood Count 4.15 MC/CUMM (3.8-5.5); Red Cell Distribution Width 13.6 % (9.3-17.3); White Blood Count 4.8 T/CUMM (4-12)
[2017-04-30 04:35] LABS: Calcium 8.9 MG/DL (8.5-10.1); Osmolality,Calculated 268.1 MOS/KG (273-304)
[2017-04-30] MEDS: cefTRIAXone 1,000 MG in SODIUM CHLORIDE 0.9% 100 ML IV SCH (04:35)
[2017-04-30 05:28] LABS: Band Neutrophils 1 % (0-10); Eosinophils 1 % (0-10); Hypochromasia 1+; Lymphocytes 11 % (20-55); Segmented Neutrophils 78 % (50-85); Total Cells Counted 100
[2017-04-30 05:29] LABS: Microcytosis 1+; Platelet Estimate Normal
--- NOTE | 2017-04-30 07:34 | Cardiology Progress Note ---
Assessment and Plan (1) Sarcoidosis Status: Chronic Current Visit: Yes (2) Mediastinal lymphadenopathy due to sarcoidosis Status: Acute Current Visit: Yes (3) SVT (supraventricular tachycardia) Status: Acute Assessment and plan: 36-year-old black male, presenting with symptomatic, incessant SVT. Frequent PVCs. EKG suggests oAVRT. Sarcoidosis, with extensive lung/mediastinal involvement, on immunosuppressants. Echo with focal wall motion abnormality, LVH. 04/29: Atypical AVNRT ablation -Cont metoprolol 50 mg bid. Frequent PVCs resolved, likely related to sarcoid heart disease -Hand/knee pain. Check uric acid -He will need cardiac MRI. R/o cardiac sarcoid. Will get it at [facility] -Suspect sleep apnea. Will need outpatient sleep evaluation. -Cont ASA for 30 days -FU in 1 week. Pls call with further questions Current Visit: Yes (4) Hypertension Status: Chronic Current Visit: Yes Qualifiers: Hypertension type: essential hypertension Qualified Code(s): I10 - Essential (primary) hypertension (5) Former smoker Status: Chronic Current Visit: Yes (6) Dyslipidemia Status: Acute Current Visit: Yes Cardiology - PN: Subj Interval history: He is feeling better. No SVT. The ventricular bigeminy resolved. No groin hematoma. Hand and knee pain. Exam (Progress Note) - Constitutional Vitals: Period Temp Pulse Resp BP Sys/Jackson Pulse Ox Last 24 Hr 97.4 F-99.9 F 93-133 13-30 102-150/61-100 91-100 General appearance: no acute distress, over weight - Head Head exam: Present: normal inspection. Absent: contusion - Eye Eye exam: Absent: conjunctival injection Pupils: Absent: dilated - ENT ENT exam: Present: normal external ear exam - Neck Neck exam: Present: normal inspection - Respiratory Respiratory exam: Present: clear to auscultation bilaterally. Absent: chest wall tenderness - Cardiovascular Cardiovascular exam: Present: regular rate and rhythm. Absent: systolic murmur - GI/Abdominal GI/Abdominal exam: Present: normal bowel sounds. Absent: distended - Extremities Exam Extremities exam: Present: normal inspection, normal capillary refill. Absent: edema - Back Exam Back exam: Present: normal inspection - Neurological Exam Neurological exam: Present: alert, oriented X3 - Psychiatric Psychiatric exam: Present: normal affect, normal mood - Skin Skin exam: Present: normal color, warm. Absent: cyanosis Result/EKG - Labs CBC & BMP: 04/30/17 03:56 04/30/17 03:56 Lab Results: I have reviewed the past 24 hour labs Labs: Laboratory Results - last 24 hr 04/29/17 04/30/17 04/30/17 04:49 03:56 03:56 WBC 4.8 RBC 4.15 Hgb 12.4 L Hct 36.0 L MCV 86.7 L MCH 30 MCHC 34.4 RDW 13.6 Plt Count 204 MPV 10.0 Neut % (Auto) 71.1 Lymph % (Auto) 12.4 L [place] % (Auto) 13.8 H Eos % (Auto) 2.1 Baso % (Auto) 0.4 Neut # (Auto) 3.4 Lymph # (Auto) 0.6 L [place] # (Auto) 0.7 Eos # (Auto) 0.1 Baso # (Auto) 0.0 Total Counted 100 Immature Gran % 0.2 Nucleated RBC % 0.0 Immature Gran # 0.01 Segmented Neutrophils 78 Band Neutrophils 1 Lymphocytes 11 L Monocytes 9 Eosinophils 1 Nucleated RBCs # 0.00 Platelet Estimate Normal Immature Plt Fraction 0.0 Hypochromasia 1+ Microcytosis 1+ Sodium 135 L Potassium 4.0 Chloride 104 Carbon Dioxide 23 Anion Gap 12.0 BUN 10 Creatinine 1.10 GFR Calculation 132 BUN/Creatinine Ratio 9.00 Glucose 96 Calculated Osmolality 268.1 L Calcium 8.9 Blood Type A POSITIVE Antibody Screen Negative - EKG EKG results: interpreted by me
[2017-04-30 07:55] VITALS: BP 123/64
--- NOTE | 2017-04-30 08:01 | Pulmonology Progress Note ---
Pulmonary - PN: Subj Interval history: The patient is a 36-year-old black man with a long history of sarcoid. He is on methotrexate weekly. He has mainly followed at [facility]. He comes in with SVT and continues to have tachyarrhythmias. 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 Everything apparently went fairly well with the procedure. He looks like he is in a sinus rhythm now. He complains of some arthralgias today. He says his breathing is doing okay. He will go to [facility] for treatment of his sarcoid. At present he is reasonably stable. Exam (Progress Note) - Constitutional Vitals: Period Temp Pulse Resp BP Sys/Jackson Pulse Ox Last 24 Hr 97.4 F-99.9 F 93-133 13-30 102-150/61-100 91-100 Exam: General appearance: no acute distress, over weight, he looks reasonably comfortable and his vital signs are stable. - Head Head exam: Present: normal inspection, normocephalic - Eye Eye exam: Present: EOMI. Absent: scleral icterus Pupils: Present: ZEKE - ENT ENT exam: Present: normal exam - Neck Neck exam: Present: normal inspection. Absent: lymphadenopathy, thyromegaly - Respiratory Respiratory exam: Present: other (The patient has minimal crackles in the bases) . He has good breath sounds bilaterally. Absent: accessory muscle use - Cardiovascular Cardiovascular exam: Present: regular rate and rhythm, he is in a sinus rhythm at present. - GI/Abdominal GI/Abdominal exam: Present: normal bowel sounds, soft. Absent: organomegaly, tenderness - Extremities Exam Extremities exam: Absent: calf tenderness, edema, he has no definite swelling of his joints. - Neurological Exam Neurological exam: Present: alert, oriented X3, CN II-XII intact - Psychiatric Psychiatric exam: Present: normal affect - Skin Skin exam: Present: warm, dry. Absent: rash Results - Labs CBC & BMP: 04/30/17 03:56 04/30/17 03:56 Assessment and Plan (1) Sarcoidosis Status: Chronic Assessment and plan: The patient comes in with acute changes with SVT and some shortness of breath. This may all be cardiac and his respiratory status may be stable. He is taking methotrexate once a week. He appears to be breathing comfortably now and he will go to [facility] for treatment of his sarcoid. I will sign off at the present time. Current Visit: Yes (2) SVT (supraventricular tachycardia) Status: Acute Assessment and plan: He had an AV node ablation yesterday and his heart rate is better. Current Visit: Yes (3) Hypertension Status: Chronic Assessment and plan: His blood pressure is on the high side at times. His blood pressure is fairly stable at present. Current Visit: Yes Qualifiers: Hypertension type: essential hypertension Qualified Code(s): I10 - Essential (primary) hypertension
--- NOTE | 2017-04-30 08:52 | Discharge Summary ---
Hospital Course - Hospital Course Hospital Course: Mr Miner presented with SVT. He has pulmonary sarcoid and is treated at [facility]. He was seen in hospital by Dr Fernandez who recommended ablation when the SVT recurred. He had ablation of atypical AV amy reentry tachycardia yesterday and has been stable in NSR since. His pulmonary sarcoid is stable. HE will continue his weekly MTX. He will follow up with [facility] for cardiac MRI and his usual sarcoid care. He will also see Dr Spence for eval of sleep apnea which he has by symptoms. He is to continue to take ASA for 30 days. He will see Dr Fernandez in 1 week. - Time spent with patient Time with patient DS: Greater than 30 minutes (care coordination, medicine reconciliation, documentation took 35 minutes.) Diagnosis - Discharge Diagnosis (1) Sarcoidosis Status: Chronic (2) Mediastinal lymphadenopathy due to sarcoidosis Status: Chronic (3) SVT (supraventricular tachycardia) Status: Resolved (4) Hypertension Status: Chronic (5) Former smoker Status: Chronic (6) Dyslipidemia Status: Chronic Specialty Discharge - Follow Up or Referrals Follow up with: [facility], pulmonary clinic [Other] (see them in the next month to arrange cardiac MRI to look for sarcoid.) Yahir Fernandez MD [Physician] - 1 Week (WednesdayMay 07 at 8:00 am ) Prachi Spence MD [Physician] - 2 Weeks (needs eval for sleep apnea May 11 at 2:15 pm Clinic will mail you paperwork to fill out and bring with you on the day of appointment. Be there 15 minutes early. ) - Speciality Discharge Instructions Internal Medicine Instructions: go to [facility] and you will need a cardiac MRI to look for cardiac sarcoid. ASA for 30 days. follow up in sleep clinic to eval for sleep apnea. Discharge Plan - Discharge Data Disposition: Disch To Home/Self Care Condition at Discharge: Stable Discharge Diet: advance to your usual diet Activity: resume usual activities as tolerated - Discharge Medications New Aspirin EC Tab 81 mg PO DAILY tablet Metoprolol Tartrate Tab [Lopressor Tab] 50 mg PO BID #60 tablet Continue Albuterol Sulfate [Ventolin HFA] 1 puff INH QID PRN PRN Reason: Shortness Of Breath - Follow Up or Referral Follow Up: [facility], pulmonary clinic [Other] (see them in the next month to arrange cardiac MRI to look for sarcoid.) Yahir Fernandez MD [Physician] - 1 Week (WednesdayMay 07 at 8:00 am ) Prachi Spence MD [Physician] - 2 Weeks (needs eval for sleep apnea May 11 at 2:15 pm Clinic will mail you paperwork to fill out and bring with you on the day of appointment. Be there 15 minutes early. ) - Forms/Instructions Instructions: Supraventricular Tachycardia (DC), Supraventricular Tachycardia ( GEN), Cardiac Ablation (DC), Sarcoidosis (DC), Chronic Hypertension (DC), Chronic Hypertension (GEN) Exam - Constitutional Vitals: Period Temp Pulse Resp BP Sys/Jackson Pulse Ox Last 24 Hr 97.4 F-99.9 F 92-121 14-30 102-150/61-100 91-100 General appearance: no acute distress, over weight - Head Head exam: Present: normocephalic, atraumatic - Eye Eye exam: Present: EOMI. Absent: scleral icterus - Respiratory Respiratory exam: Present: rales (minimal crackles at bases). Absent: wheezes - Cardiovascular Cardiovascular exam: Present: regular rate and rhythm - GI/Abdominal GI/Abdominal exam: Present: normal bowel sounds, soft. Absent: tenderness - Extremities Exam Extremities exam: Absent: edema Discharge Results Labs on day of discharge: Labs from last 24 hours 04/30/17 04/30/17 04/30/17 03:56 03:56 03:56 WBC 4.8 RBC 4.15 Hgb 12.4 L Hct 36.0 L MCV 86.7 L MCH 30 MCHC 34.4 RDW 13.6 Plt Count 204 MPV 10.0 Neut % (Auto) 71.1 Lymph % (Auto) 12.[address] % (Auto) 13.8 H Eos % (Auto) 2.1 Baso % (Auto) 0.4 Neut # (Auto) 3.4 Lymph # (Auto) 0.[address] [place] [place] # (Auto) 0.7 Eos # (Auto) 0.1 Baso # (Auto) 0.0 Total Counted 100 Immature Gran % 0.2 Nucleated RBC % 0.0 Immature Gran # 0.01 Segmented Neutrophils 78 Band Neutrophils 1 Lymphocytes 11 L Monocytes 9 Eosinophils 1 Nucleated RBCs # 0.00 Platelet Estimate Normal Immature Plt Fraction 0.0 Hypochromasia 1+ Microcytosis 1+ Sodium 135 L Potassium 4.0 Chloride 104 Carbon Dioxide 23 Anion Gap 12.0 BUN 10 Creatinine 1.10 GFR Calculation 132 BUN/Creatinine Ratio 9.00 Glucose 96 Calculated Osmolality 268.1 L Uric Acid 6.3 Calcium 8.9 DS: Provider Date of admission: 04/28/17 02:37 Primary care physician: . No PCP Attending physician on admission: Jean Casas MD Consults: 04/28/17 02:36 Consult to Physician [CONS] Routine Comment: sarcoidosis with lymphadenopathy and SOB Consulting Provider: Daniel Boudreaux Consult to Physician [CONS] Routine Comment: svt, Chest pain, SOB Consulting Provider: Cardiology - [facility] Discharging clinician: Jackie Greene MD
[2017-04-30] MEDS: ENOXAPARIN 40 MG/0.4 ML SYRINGE SUBCUT SCH (08:53)
[2017-04-30] MEDS: PANTOPRAZOLE 40 MG TABLET PO SCH (08:54)
[2017-04-30] MEDS: ASPIRIN EC 81 MG TABLET PO SCH (08:54)
[2017-04-30] MEDS: AZITHROMYCIN 250 MG TABLET PO SCH (08:54)
[2017-04-30] MEDS: METOPROLOL TARTRATE 50 MG TABLET PO SCH (08:54)
== END 2017-04-30 09:51 | disposition home or self-care (01) | DRG 274 ==
LOC: N.ED 23:23 → SUATTDRO 04-28 02:37 → N.EDINP 04-28 02:37 → N.CC 04-28 03:00
PROVIDERS: ADMIT Family Medicine; ATTEND Internal Medicine

== ENCOUNTER 2018-10-25 16:19 | Inpatient (IN) ==
[2018-10-25] MEDS ORDERED: PNEUMOCOCCAL VACCINE (23 VALENT) 0.5 ML VIAL IM ONE (20:54)
[2018-10-25] MEDS ORDERED: INFLUENZA VIRUS VACCINE 0.5 ML SYRINGE IM ONE (20:54)
[2018-10-25] MEDS ORDERED: guaiFENesin/DM ER 600-30 MG TABLET PO PRN (21:27)
[2018-10-25] MEDS ORDERED: ACETAMINOPHEN 500 MG TABLET PO PRN (21:27)
[2018-10-25] MEDS ORDERED: diphenhydrAMINE CAP 25 MG CAPSULE PO PRN (21:27)
[2018-10-25] MEDS ORDERED: BISACODYL 5 MG TABLET PO PRN (21:27)
[2018-10-25] MEDS ORDERED: traZODone 50 MG TABLET PO PRN (21:27)
[2018-10-25] MEDS ORDERED: NICOTINE 21 MG/24 HR PATCH TRANSDERM PRN (21:27)
[2018-10-25] MEDS ORDERED: MORPHINE 4 MG/1 ML VIAL IV PRN (21:27)
[2018-10-25] MEDS ORDERED: LEVALBUTEROL 1.25 MG/3 ML NEB RESP TX PRN (21:27)
[2018-10-25] MEDS ORDERED: ONDANSETRON 4 MG/2 ML VIAL IV PRN (21:27)
[2018-10-25] MEDS ORDERED: ALBUTEROL 2.5 MG/3 ML NEB RESP TX PRN (21:31)
[2018-10-25] MEDS ORDERED: METOPROLOL TARTRATE 50 MG TABLET PO SCH (22:00)
[2018-10-25 22:08] LABS: Basophils % 0.4 % (0.0-0.8); Eosinophils % 0.6 % (0.00-10.9); Hematocrit 36.7 VOL% (42.0-52.0); Hemoglobin 11.9 GM/DL (14.0-18.0); Immature Granulocytes % 0.4 %; Immature Granulocytes Absolute 0.02 #; Lymphocytes # 0.4 10*3/uL (1.4-4.0); Lymphocytes % 7.8 % (21.2-54.2); Mean Corpuscular HGB Conc 32.4 GM/DL (32-36); Mean Corpuscular Hemoglobin 28 PG (27-34); Mean Corpuscular Volume 86.4 FL (87-102); Mean Platelet Volume 10.5 FL (9.6-12.0); Monocytes # 0.3 10*3/uL (0.11-0.8); Neutrophils % 83.8 % (38.7-73.9); Platelet Count 160 T/CUMM (130-400); Red Blood Count 4.25 MC/CUMM (3.8-5.5); Red Cell Distribution Width 14.8 % (9.3-17.3); White Blood Count 4.7 T/CUMM (4-12)
[2018-10-25] MEDS ORDERED: cefTRIAXone 1,000 MG in SYRINGE 1 EACH IV SCH (22:30)
[2018-10-25 22:37] LABS: Albumin 3.3 G/DL (3.4-5.0); Bilirubin,Total 1.1 MG/DL (0.2-1.0); Calcium 8.8 MG/DL (8.5-10.1); Osmolality,Calculated 270.1 MOS/KG (273-304); Potassium 3.6 MMOL/L (3.5-5.1); Total Protein 8.6 G/DL (6.4-8.3)
[2018-10-25 22:53] LABS: Band Neutrophils 6 % (0-10); Lymphocytes 8 % (20-55); Platelet Estimate Normal; Segmented Neutrophils 79 % (50-85); Total Cells Counted 100
[2018-10-25 22:54] LABS: Anisocytosis Slight; Hypochromasia Slight; Polychromasia Slight
[2018-10-26] MEDS: ALBUTEROL/IPRATROPIUM 3 ML NEB RESP TX SCH ×6 (00:09→19:46)
[2018-10-26] MEDS: SODIUM CHLORIDE 0.9% 1,000 ML IV SCH ×2 (00:29→12:47)
[2018-10-26] MEDS: IBUPROFEN 600 MG TABLET PO SCH ×3 (00:30→23:41)
[2018-10-26] MEDS: methylPREDNISolone SOD SUC 40 MG/1 ML VIAL IV SCH ×3 (03:12→17:53)
[2018-10-26] MEDS: ACETAMINOPHEN 500 MG TABLET PO SCH ×2 (06:50→17:54)
[2018-10-26] MEDS: PANTOPRAZOLE 40 MG TABLET PO SCH (08:45)
[2018-10-26] MEDS: CETIRIZINE 10 MG TABLET PO SCH (08:45)
[2018-10-26] MEDS: ENOXAPARIN 40 MG/0.4 ML SYRINGE SUBCUT SCH (08:45)
[2018-10-26] MEDS: AZITHROMYCIN 250 MG TABLET PO SCH (08:45)
[2018-10-26] MEDS: FOLIC ACID 0.4 MG TABLET PO SCH (08:45)
[2018-10-26] MEDS ORDERED: Umeclidinium Brm/Vilanterol Tr [Anoro Ellipta] 1 PUFF INH SCH (09:00)
[2018-10-26] MEDS ORDERED: amLODIPine 5 MG TABLET PO SCH (09:00)
[2018-10-26] MEDS ORDERED: hydroCHLOROthiazide 25 MG TABLET PO SCH (09:00)
[2018-10-26] MEDS ORDERED: MAGNESIUM SULF RIDER 4 GM in PREMIX 1 EACH IV PRN (10:35)
[2018-10-26] MEDS ORDERED: POTASSIUM CHLORIDE 20 MEQ/15 ML UDCUP PER TUBE PRN (10:35)
[2018-10-26] MEDS ORDERED: MAGNESIUM SULF RIDER 2 GM in PREMIX 1 EACH IV PRN (10:35)
[2018-10-26] MEDS: METOPROLOL TARTRATE 50 MG TABLET PO SCH ×2 (12:40→21:21)
[2018-10-26] MEDS: POTASSIUM CHLORIDE 20 MEQ TABLET PO PRN ×2 (21:21→23:41)
[2018-10-26 23:20] LABS: Apearance,Urine CLEAR (Clear); Bilirubin,Urine Negative (Negative); Blood, Urine Small mg/dL (Negative); Glucose,Urine (UA) Negative (Negative); Ketones,Urine Negative (Negative); Mucus,Urine Occasional /LPF (Occasional); Nitrite,Urine Negative (Negative); Protein,Urine 30 MG/DL; RBC,Urine <1 /HPF (0-4); Urine Color Yellow (Yellow); Urine Specific Gravity 1.015 (1.001-1.035); Urine Urobilinogen < 2.0 EU/DL (0.2-1.0); WBC,Urine <1 /HPF (0-6)
[2018-10-27] MEDS: ALBUTEROL/IPRATROPIUM 3 ML NEB RESP TX SCH ×4 (00:04→10:54)
[2018-10-27] MEDS: methylPREDNISolone SOD SUC 40 MG/1 ML VIAL IV SCH ×2 (02:21→09:29)
[2018-10-27] MEDS: SODIUM CHLORIDE 0.9% 1,000 ML IV SCH (04:07)
[2018-10-27] MEDS: ACETAMINOPHEN 500 MG TABLET PO SCH (05:28)
[2018-10-27 07:33] LABS: Calcium 9.1 MG/DL (8.5-10.1); Osmolality,Calculated 280.7 MOS/KG (273-304); Potassium 4.7 MMOL/L (3.5-5.1)
[2018-10-27 07:55] LABS: Hematocrit 37.5 VOL% (42.0-52.0); Hemoglobin 11.9 GM/DL (14.0-18.0); Immature Granulocytes % 0.3 %; Immature Granulocytes Absolute 0.02 #; Lymphocytes # 0.5 10*3/uL (1.4-4.0); Lymphocytes % 7.5 % (21.2-54.2); Mean Corpuscular HGB Conc 31.7 GM/DL (32-36); Mean Corpuscular Hemoglobin 28 PG (27-34); Mean Corpuscular Volume 87.8 FL (87-102); Mean Platelet Volume 10.4 FL (9.6-12.0); Monocytes # 0.4 10*3/uL (0.11-0.8); Monocytes % 5.2 % (1.7-12.7); Neutrophils # 6.1 10*3/uL (1.4-7.4); Platelet Count 182 T/CUMM (130-400); Red Blood Count 4.27 MC/CUMM (3.8-5.5); Red Cell Distribution Width 14.8 % (9.3-17.3); White Blood Count 7.1 T/CUMM (4-12)
[2018-10-27 08:13] LABS: Osmolality,Calculated 277.8 MOS/KG (273-304); Potassium 4.6 MMOL/L (3.5-5.1)
[2018-10-27 08:21] LABS: Anisocytosis Slight; Platelet Estimate Normal
[2018-10-27] MEDS ORDERED: DILTIAZEM CD 120 MG CAPSULE PO SCH (09:00)
[2018-10-27] MEDS ORDERED: cefTRIAXone 1,000 MG in SYRINGE 1 EACH IV SCH (09:00)
[2018-10-27] MEDS: FOLIC ACID 0.4 MG TABLET PO SCH (09:28)
[2018-10-27] MEDS: AZITHROMYCIN 250 MG TABLET PO SCH (09:29)
[2018-10-27] MEDS: CETIRIZINE 10 MG TABLET PO SCH (09:29)
[2018-10-27] MEDS: METOPROLOL TARTRATE 50 MG TABLET PO SCH (09:29)
[2018-10-27] MEDS: ENOXAPARIN 40 MG/0.4 ML SYRINGE SUBCUT SCH (09:29)
[2018-10-27] MEDS: PANTOPRAZOLE 40 MG TABLET PO SCH (09:29)
[2018-10-27 11:04] VITALS: BP 158/77
[2018-11-01] MEDS ORDERED: METHOTREXATE 2.5 MG PO SCH (09:00)
== END 2018-10-27 12:01 | disposition home or self-care (01) | DRG 309 ==
LOC: N.5E 19:49 → SUATTDRO 19:49
PROVIDERS: ADMIT Internal Medicine; ATTEND Internal Medicine

== ENCOUNTER 2019-03-30 16:06 | Inpatient (IN) ==
[2019-03-30] MEDS ORDERED: LACTULOSE 20 GM/30 ML UDCUP PO PRN (16:25)
[2019-03-30] MEDS ORDERED: MORPHINE 4 MG/1 ML VIAL IV PRN (16:25)
[2019-03-30] MEDS ORDERED: diphenhydrAMINE CAP 25 MG CAPSULE PO PRN (16:25)
[2019-03-30] MEDS ORDERED: ONDANSETRON 4 MG/2 ML VIAL IV PRN (16:25)
[2019-03-30] MEDS ORDERED: MAGNESIUM SULF RIDER 4 GM in PREMIX 1 EACH IV PRN (16:25)
[2019-03-30] MEDS ORDERED: DOCUSATE SODIUM 100 MG CAPSULE PO PRN (16:25)
[2019-03-30] MEDS ORDERED: ACETAMINOPHEN 325 MG TABLET PO PRN (16:25)
[2019-03-30] MEDS ORDERED: ZALEPLON 5 MG CAPSULE PO PRN (16:25)
[2019-03-30] MEDS ORDERED: guaiFENesin/DM ER 600-30 MG TABLET PO PRN (16:25)
[2019-03-30] MEDS ORDERED: AMIODARONE INJ 450 MG in DEXTROSE 5% 241 ML IV SCH (17:00)
[2019-03-30] MEDS ORDERED: ALBUTEROL 2.5 MG/3 ML NEB RESP TX PRN (18:11)
[2019-03-30] MEDS: ENOXAPARIN 40 MG/0.4 ML SYRINGE SUBCUT SCH (18:17)
[2019-03-30 18:37] LABS: Troponin I < 0.015 NG/ML (0.00-0.045)
[2019-03-30] MEDS: AMIODARONE INJ 450 MG in DEXTROSE 5% 241 ML IV SCH (20:10)
[2019-03-30] MEDS: MONTELUKAST 10 MG TABLET PO SCH (20:37)
[2019-03-30] MEDS: METOPROLOL TARTRATE 50 MG TABLET PO SCH (20:37)
[2019-03-30 22:09] LABS: Troponin I < 0.015 NG/ML (0.00-0.045)
[2019-03-31 04:56] LABS: Basophils % 0.3 % (0.0-0.8); Eosinophils # 0.1 10*3/uL (0.0-0.87); Eosinophils % 2.8 % (0.00-10.9); Hematocrit 35.5 VOL% (42.0-52.0); Hemoglobin 11.8 GM/DL (14.0-18.0); Immature Granulocytes % 0.6 %; Immature Granulocytes Absolute 0.02 #; Lymphocytes # 0.4 10*3/uL (1.4-4.0); Mean Corpuscular HGB Conc 33.2 GM/DL (32-36); Mean Corpuscular Volume 89.4 FL (87-102); Mean Platelet Volume 10.4 FL (9.6-12.0); Monocytes % 12.3 % (1.7-12.7); Platelet Count 149 T/CUMM (130-400); Red Blood Count 3.97 MC/CUMM (3.8-5.5); White Blood Count 3.2 T/CUMM (4-12)
[2019-03-31 05:17] LABS: Alanine Aminotransferase 48 U/L (16-61); Alkaline Phosphatase 187 U/L (45-117); Aspartate Amino Transferase 26 U/L (0-37); Blood Urea Nitrogen 16 MG/DL (7-18); Calcium 8.7 MG/DL (8.5-10.1); Glucose 92 MG/DL (74-106); HDL Cholesterol 34 MG/DL (40-60); Osmolality,Calculated 273.8 MOS/KG (273-304); Risk Ratio 6.26; Total Protein 8.1 G/DL (6.4-8.3); Triglycerides 217 MG/DL (2-150); Troponin I < 0.015 NG/ML (0.00-0.045); VLDL CHOLESTEROL 43.4 MG/DL
[2019-03-31] MEDS: METOPROLOL TARTRATE 50 MG TABLET PO SCH ×2 (09:43→21:04)
[2019-03-31] MEDS: CETIRIZINE 10 MG TABLET PO SCH (09:43)
[2019-03-31] MEDS: PANTOPRAZOLE 40 MG TABLET PO SCH (09:43)
[2019-03-31] MEDS: FOLIC ACID 1 MG TABLET PO SCH (09:43)
[2019-03-31] MEDS: prednisoLONE 5 MG TABLET PO SCH (09:43)
[2019-03-31] MEDS: MAGNESIUM SULF RIDER 2 GM in PREMIX 1 EACH IV PRN (09:45)
[2019-03-31] MEDS: AMIODARONE INJ 450 MG in DEXTROSE 5% 241 ML IV SCH (11:26)
[2019-03-31] MEDS: AMIODARONE 200 MG TABLET PO SCH ×2 (11:26→21:04)
[2019-03-31] MEDS: ENOXAPARIN 40 MG/0.4 ML SYRINGE SUBCUT SCH (18:40)
[2019-03-31] MEDS: MONTELUKAST 10 MG TABLET PO SCH (21:04)
[2019-04-01] MEDS: AMIODARONE INJ 450 MG in DEXTROSE 5% 241 ML IV SCH (04:05)
[2019-04-01 04:55] LABS: Basophils % 0.3 % (0.0-0.8); Calcium 8.9 MG/DL (8.5-10.1); Eosinophils # 0.1 10*3/uL (0.0-0.87); Eosinophils % 3.1 % (0.00-10.9); Hematocrit 35.9 VOL% (42.0-52.0); Hemoglobin 11.4 GM/DL (14.0-18.0); Immature Granulocytes % 0.3 %; Immature Granulocytes Absolute 0.01 #; Lymphocytes # 0.4 10*3/uL (1.4-4.0); Lymphocytes % 12.8 % (21.2-54.2); Mean Corpuscular HGB Conc 31.8 GM/DL (32-36); Mean Corpuscular Volume 90.9 FL (87-102); Mean Platelet Volume 10.5 FL (9.6-12.0); Monocytes % 14.7 % (1.7-12.7); Neutrophils % 68.8 % (38.7-73.9); Osmolality,Calculated 279.5 MOS/KG (273-304); Platelet Count 163 T/CUMM (130-400); Red Blood Count 3.95 MC/CUMM (3.8-5.5); Red Cell Distribution Width 14.9 % (9.3-17.3); White Blood Count 3.3 T/CUMM (4-12)
[2019-04-01] MEDS: POTASSIUM CHLORIDE 20 MEQ TABLET PO PRN (09:16)
[2019-04-01] MEDS: FOLIC ACID 1 MG TABLET PO SCH (09:16)
[2019-04-01] MEDS: AMIODARONE 200 MG TABLET PO SCH ×2 (09:16→20:27)
[2019-04-01] MEDS: prednisoLONE 5 MG TABLET PO SCH (09:16)
[2019-04-01] MEDS: CETIRIZINE 10 MG TABLET PO SCH (09:16)
[2019-04-01] MEDS: PANTOPRAZOLE 40 MG TABLET PO SCH (09:16)
[2019-04-01] MEDS: METOPROLOL TARTRATE 50 MG TABLET PO SCH (09:16)
[2019-04-01] MEDS: Umeclidinium-Vilanterol [Anoro Ellipta] 1 PUFF INH SCH (13:19)
[2019-04-01] MEDS: ENOXAPARIN 40 MG/0.4 ML SYRINGE SUBCUT SCH (18:30)
[2019-04-01] MEDS: METOPROLOL TARTRATE 100 MG TABLET PO SCH (20:27)
[2019-04-01] MEDS: MONTELUKAST 10 MG TABLET PO SCH (20:27)
[2019-04-02 06:07] LABS: Basophils % 0.6 % (0.0-0.8); Eosinophils # 0.1 10*3/uL (0.0-0.87); Hematocrit 37.8 VOL% (42.0-52.0); Hemoglobin 12.2 GM/DL (14.0-18.0); Immature Granulocytes % 0.6 %; Immature Granulocytes Absolute 0.02 #; Lymphocytes # 0.5 10*3/uL (1.4-4.0); Lymphocytes % 13.8 % (21.2-54.2); Mean Corpuscular HGB Conc 32.3 GM/DL (32-36); Mean Corpuscular Volume 90.2 FL (87-102); Monocytes % 14.4 % (1.7-12.7); Neutrophils % 68.6 % (38.7-73.9); Platelet Count 174 T/CUMM (130-400); Red Blood Count 4.19 MC/CUMM (3.8-5.5); Red Cell Distribution Width 14.9 % (9.3-17.3); White Blood Count 3.6 T/CUMM (4-12)
[2019-04-02 06:39] LABS: Osmolality,Calculated 279.4 MOS/KG (273-304)
[2019-04-02] MEDS: POTASSIUM CHLORIDE 20 MEQ TABLET PO PRN (08:04)
[2019-04-02] MEDS: prednisoLONE 5 MG TABLET PO SCH (08:04)
[2019-04-02] MEDS: CETIRIZINE 10 MG TABLET PO SCH (08:04)
[2019-04-02] MEDS: METOPROLOL TARTRATE 100 MG TABLET PO SCH ×2 (08:04→20:08)
[2019-04-02] MEDS: PANTOPRAZOLE 40 MG TABLET PO SCH (08:05)
[2019-04-02] MEDS: Umeclidinium-Vilanterol [Anoro Ellipta] 1 PUFF INH SCH (08:05)
[2019-04-02] MEDS: FOLIC ACID 1 MG TABLET PO SCH (08:05)
[2019-04-02] MEDS: AMIODARONE 200 MG TABLET PO SCH ×2 (08:05→20:08)
[2019-04-02] MEDS: ENOXAPARIN 40 MG/0.4 ML SYRINGE SUBCUT SCH (18:44)
[2019-04-02] MEDS: MONTELUKAST 10 MG TABLET PO SCH (20:08)
[2019-04-03 05:44] LABS: Basophils % 0.3 % (0.0-0.8); Eosinophils # 0.1 10*3/uL (0.0-0.87); Eosinophils % 2.9 % (0.00-10.9); Hematocrit 36.6 VOL% (42.0-52.0); Hemoglobin 12.1 GM/DL (14.0-18.0); Immature Granulocytes % 0.3 %; Immature Granulocytes Absolute 0.01 #; Lymphocytes # 0.4 10*3/uL (1.4-4.0); Mean Corpuscular HGB Conc 33.1 GM/DL (32-36); Mean Corpuscular Volume 90.8 FL (87-102); Mean Platelet Volume 10.4 FL (9.6-12.0); Monocytes % 12.7 % (1.7-12.7); Neutrophils % 70.8 % (38.7-73.9); Platelet Count 161 T/CUMM (130-400); Red Blood Count 4.03 MC/CUMM (3.8-5.5); Red Cell Distribution Width 15.2 % (9.3-17.3); White Blood Count 3.2 T/CUMM (4-12)
[2019-04-03 06:06] LABS: Calcium 8.8 MG/DL (8.5-10.1); Osmolality,Calculated 279.4 MOS/KG (273-304)
[2019-04-03] MEDS ORDERED: DIAZEPAM 5 MG TABLET PO ONE (07:10)
[2019-04-03] MEDS ORDERED: diphenhydrAMINE CAP 25 MG CAPSULE PO ONE (07:10)
[2019-04-03] MEDS ORDERED: SODIUM CHLORIDE 0.9% 1,000 ML IV SCH (07:30)
[2019-04-03] MEDS: PANTOPRAZOLE 40 MG TABLET PO SCH ×2 (07:39→08:05)
[2019-04-03] MEDS: CETIRIZINE 10 MG TABLET PO SCH ×2 (07:39→08:05)
[2019-04-03] MEDS: FOLIC ACID 1 MG TABLET PO SCH ×2 (07:40→08:05)
[2019-04-03] MEDS: prednisoLONE 5 MG TABLET PO SCH ×2 (07:40→08:05)
[2019-04-03] MEDS: METOPROLOL TARTRATE 100 MG TABLET PO SCH ×3 (07:40→21:23)
[2019-04-03] MEDS: AMIODARONE 200 MG TABLET PO SCH ×3 (07:41→21:23)
[2019-04-03] MEDS: POTASSIUM CHLORIDE 20 MEQ TABLET PO PRN (07:42)
[2019-04-03] MEDS ORDERED: LIDOCAINE 1% 20 ML VIAL ONE ×2 (07:48→16:56)
[2019-04-03] MEDS ORDERED: VERAPAMIL 5 MG/2 ML VIAL ONE (07:48)
[2019-04-03] MEDS ORDERED: NITROGLYCERIN DRIP 50 MG/250 ML BOTTLE IV ONE (07:48)
[2019-04-03] MEDS ORDERED: HEPARIN/NACL 0.9% 2 UNITS/ML 1,000 ML IV ONE (07:48)
[2019-04-03] MEDS: MAGNESIUM SULF RIDER 2 GM in PREMIX 1 EACH IV PRN (07:57)
[2019-04-03] MEDS: Umeclidinium-Vilanterol [Anoro Ellipta] 1 PUFF INH SCH (08:05)
[2019-04-03] MEDS ORDERED: fentaNYL 100 MCG/2 ML VIAL ONE ×4 (08:20→17:39)
[2019-04-03] MEDS ORDERED: MIDAZOLAM 2 MG/2 ML VIAL ONE ×6 (08:20→17:51)
[2019-04-03] MEDS ORDERED: ENOXAPARIN 60 MG/0.6 ML SYRINGE ONE (08:41)
[2019-04-03] MEDS ORDERED: ceFAZolin 1,000 MG in SYRINGE 1 EACH IV ONE (09:07)
[2019-04-03] MEDS ORDERED: ceFAZolin 1,000 MG VIAL IRRIG ONE (09:07)
[2019-04-03] MEDS ORDERED: HEPARIN/NACL 0.9% 2 UNITS/ML 500 ML IV ONE (16:56)
[2019-04-03] MEDS ORDERED: ceFAZolin 1,000 MG VIAL ONE (16:58)
[2019-04-03] MEDS ORDERED: diphenhydrAMINE 50 MG/1 ML VIAL ONE (17:39)
[2019-04-03] MEDS ORDERED: TISSUE ADHESIVE 1 EACH APPLICATOR TOP ONE (17:55)
[2019-04-03] MEDS: MONTELUKAST 10 MG TABLET PO SCH (21:23)
[2019-04-04] MEDS: ceFAZolin 1,000 MG in SYRINGE 1 EACH IV SCH ×2 (00:18→09:30)
[2019-04-04 04:40] LABS: Basophils % 0.3 % (0.0-0.8); Eosinophils % 0.5 % (0.00-10.9); Hematocrit 36.7 VOL% (42.0-52.0); Immature Granulocytes % 0.3 %; Immature Granulocytes Absolute 0.01 #; Lymphocytes # 0.2 10*3/uL (1.4-4.0); Lymphocytes % 5.1 % (21.2-54.2); Mean Corpuscular HGB Conc 32.7 GM/DL (32-36); Mean Corpuscular Volume 91.8 FL (87-102); Mean Platelet Volume 10.1 FL (9.6-12.0); Neutrophils % 85.8 % (38.7-73.9); Platelet Count 140 T/CUMM (130-400); Red Cell Distribution Width 15.1 % (9.3-17.3); White Blood Count 3.8 T/CUMM (4-12)
[2019-04-04 05:02] LABS: Calcium 8.5 MG/DL (8.5-10.1); Osmolality,Calculated 270.1 MOS/KG (273-304)
[2019-04-04 05:05] LABS: Hypochromasia 1+; Platelet Estimate Normal
[2019-04-04] MEDS: MAGNESIUM SULF RIDER 2 GM in PREMIX 1 EACH IV PRN (05:35)
[2019-04-04] MEDS: POTASSIUM CHLORIDE 20 MEQ TABLET PO PRN (05:36)
[2019-04-04 08:14] VITALS: BP 117/72
[2019-04-04] MEDS: AMIODARONE 200 MG TABLET PO SCH (09:20)
[2019-04-04] MEDS: prednisoLONE 5 MG TABLET PO SCH (09:20)
[2019-04-04] MEDS: METOPROLOL TARTRATE 100 MG TABLET PO SCH (09:20)
[2019-04-04] MEDS: CETIRIZINE 10 MG TABLET PO SCH (09:20)
[2019-04-04] MEDS: PANTOPRAZOLE 40 MG TABLET PO SCH (09:20)
[2019-04-04] MEDS: FOLIC ACID 1 MG TABLET PO SCH (09:20)
[2019-04-04] MEDS: Umeclidinium-Vilanterol [Anoro Ellipta] 1 PUFF INH SCH (09:21)
[2019-04-06] MEDS ORDERED: METHOTREXATE 2.5 MG TABLET PO SCH (09:00)
== END 2019-04-04 11:24 | disposition home or self-care (01) | DRG 224 ==
LOC: N.ICU 17:46 → N.TELES 04-01 07:56 → N.TELEN 04-03 08:12
PROVIDERS: ADMIT Internal Medicine Clinical Cardiac Electrophysiology; ATTEND Internal Medicine Clinical Cardiac Electrophysiology
PROC: CLCCHCL (ICD-10-PCS; 2019-04-03 08:45)
PROC: CLDCICD (2019-04-03 17:45)

== ENCOUNTER 2019-12-16 16:32 | Inpatient (IN) ==
[2019-12-16] MEDS ORDERED: ACETAMINOPHEN 500 MG TABLET ONE (16:59)
[2019-12-16] MEDS ORDERED: ACETAMINOPHEN 500 MG TABLET PO STA (17:03)
[2019-12-16 17:43] LABS: Basophils % 0.2 % (0.0-0.8); Eosinophils % 0.2 % (0.00-10.9); Hematocrit 37.3 VOL% (42.0-52.0); Hemoglobin 12.1 GM/DL (14.0-18.0); Immature Granulocytes % 0.7 %; Immature Granulocytes Absolute 0.03 #; Lymphocytes # 0.3 10*3/uL (1.4-4.0); Lymphocytes % 5.5 % (21.2-54.2); Mean Corpuscular HGB Conc 32.4 GM/DL (32-36); Mean Corpuscular Volume 97.1 FL (87-102); Mean Platelet Volume 10.4 FL (9.6-12.0); Monocytes % 8.4 % (1.7-12.7); Platelet Count 110 T/CUMM (130-400); Red Blood Count 3.84 MC/CUMM (3.8-5.5); Red Cell Distribution Width 14.4 % (9.3-17.3); White Blood Count 4.5 T/CUMM (4-12)
[2019-12-16 18:12] LABS: Albumin 3.7 G/DL (3.4-5.0); Bilirubin,Total 1.1 MG/DL (0.2-1.0); Osmolality,Calculated 268.2 MOS/KG (273-304); Total Protein 7.8 G/DL (6.4-8.3)
[2019-12-16 18:14] LABS: PT Patient Result 10.7 SECS (9.6-12.2); Partial Thromboplastin Time 31.6 SECS (20.8-36.0)
[2019-12-16 18:23] LABS: Ferritin 310.9 ng/ml (26-388)
[2019-12-16] MEDS ORDERED: cefTRIAXone 1,000 MG in SODIUM CHLORIDE 0.9% 100 ML IV ONE (18:25)
[2019-12-16] MEDS ORDERED: AZITHROMYCIN INJ 500 MG in SODIUM CHLORIDE 0.9% 250 ML IV ONE (18:25)
[2019-12-16] MEDS ORDERED: SODIUM CHLORIDE 0.9% 1,000 ML IV STA (18:37)
[2019-12-16] MEDS ORDERED: MAGNESIUM SULF RIDER 4 GM in PREMIX 1 EACH IV PRN (19:23)
[2019-12-16] MEDS ORDERED: MAGNESIUM SULF RIDER 2 GM in PREMIX 1 EACH IV PRN (19:23)
[2019-12-16 19:48] LABS: Apearance,Urine CLEAR (Clear); Bilirubin,Urine Negative (Negative); Blood, Urine Negative (Negative); Glucose,Urine (UA) Negative (Negative); Ketones,Urine Negative (Negative); Nitrite,Urine Negative (Negative); Protein,Urine Negative; RBC,Urine <1 /HPF (0-4); Urine Color Straw (Yellow); Urine Specific Gravity 1.004 (1.001-1.035); Urine Urobilinogen < 2.0 EU/DL (0.2-1.0); WBC,Urine <1 /HPF (0-6)
[2019-12-16] MEDS ORDERED: ONDANSETRON 4 MG/2 ML VIAL IV PRN (23:56)
[2019-12-16] MEDS ORDERED: AZITHROMYCIN INJ 500 MG in SODIUM CHLORIDE 0.9% 250 ML IV SCH (23:56)
[2019-12-17] MEDS: SODIUM CHLORIDE 0.9% 1,000 ML IV SCH ×3 (00:15→20:15)
[2019-12-17] MEDS: METOPROLOL TARTRATE 100 MG TABLET PO SCH ×3 (00:17→20:15)
[2019-12-17] MEDS: ENOXAPARIN 40 MG/0.4 ML SYRINGE SUBCUT SCH ×2 (00:17→20:15)
[2019-12-17] MEDS: AMIODARONE 200 MG TABLET PO SCH ×3 (00:17→20:15)
[2019-12-17 03:46] LABS: Hematocrit 37.8 VOL% (42.0-52.0); Hemoglobin 11.7 GM/DL (14.0-18.0); Immature Granulocytes % 0.4 %; Immature Granulocytes Absolute 0.01 #; Lymphocytes # 0.2 10*3/uL (1.4-4.0); Lymphocytes % 8.2 % (21.2-54.2); Mean Corpuscular Volume 99.7 FL (87-102); Mean Platelet Volume 10.4 FL (9.6-12.0); Monocytes % 10.5 % (1.7-12.7); Neutrophils % 80.9 % (38.7-73.9); Platelet Count 101 T/CUMM (130-400); Red Blood Count 3.79 MC/CUMM (3.8-5.5); Red Cell Distribution Width 14.5 % (9.3-17.3); White Blood Count 2.7 T/CUMM (4-12)
[2019-12-17 04:04] LABS: Albumin 3.6 G/DL (3.4-5.0); Bilirubin,Total 0.7 MG/DL (0.2-1.0); Calcium 8.5 MG/DL (8.5-10.1); Osmolality,Calculated 272.8 MOS/KG (273-304); Total Protein 7.5 G/DL (6.4-8.3)
[2019-12-17 07:10] LABS: Barbiturates Screen,Urine Negative (Negative); Benzodiazepines Screen,Urine Negative (Negative); Cannabinoid Screen,Urine Negative (Negative); Opiate Screen,Urine Negative (Negative); Phencyclidine Screen,Urine Negative (Negative)
[2019-12-17] MEDS: DILTIAZEM CD 120 MG CAPSULE PO SCH (09:24)
[2019-12-17] MEDS: FOLIC ACID 1 MG TABLET PO SCH (09:24)
[2019-12-17] MEDS: ACETAMINOPHEN 325 MG TABLET PO PRN (14:03)
[2019-12-17] MEDS: AZITHROMYCIN 250 MG TABLET PO SCH (20:15)
[2019-12-18] MEDS: ACETAMINOPHEN 325 MG TABLET PO PRN (00:35)
[2019-12-18 05:08] LABS: Basophils % 0.4 % (0.0-0.8); Eosinophils % 1.1 % (0.00-10.9); Hematocrit 35.3 VOL% (42.0-52.0); Hemoglobin 11.5 GM/DL (14.0-18.0); Immature Granulocytes % 0.4 %; Immature Granulocytes Absolute 0.01 #; Lymphocytes # 0.4 10*3/uL (1.4-4.0); Lymphocytes % 15.2 % (21.2-54.2); Mean Corpuscular HGB Conc 32.6 GM/DL (32-36); Mean Corpuscular Volume 98.1 FL (87-102); Mean Platelet Volume 11.1 FL (9.6-12.0); Monocytes % 8.7 % (1.7-12.7); Neutrophils % 74.2 % (38.7-73.9); Platelet Count 92 T/CUMM (130-400); Red Cell Distribution Width 14.2 % (9.3-17.3); White Blood Count 2.6 T/CUMM (4-12)
[2019-12-18 05:16] LABS: Albumin 3.3 G/DL (3.4-5.0); Bilirubin,Total 0.8 MG/DL (0.2-1.0); Calcium 8.1 MG/DL (8.5-10.1); Osmolality,Calculated 266.2 MOS/KG (273-304); Total Protein 6.9 G/DL (6.4-8.3)
[2019-12-18 05:37] LABS: Band Neutrophils 4 % (0-10); Lymphocytes 13 % (20-55); Segmented Neutrophils 77 % (50-85); Total Cells Counted 100
[2019-12-18 05:38] LABS: Hypochromasia 1+; Platelet Estimate Decreased
[2019-12-18] MEDS: SODIUM CHLORIDE 0.9% 1,000 ML IV SCH ×3 (05:56→23:53)
[2019-12-18] MEDS: DILTIAZEM CD 120 MG CAPSULE PO SCH (10:01)
[2019-12-18] MEDS: METOPROLOL TARTRATE 100 MG TABLET PO SCH ×2 (10:02→20:50)
[2019-12-18] MEDS: FOLIC ACID 1 MG TABLET PO SCH (10:02)
[2019-12-18] MEDS: AMIODARONE 200 MG TABLET PO SCH ×2 (10:02→20:50)
[2019-12-18] MEDS ORDERED: POTASSIUM CHLORIDE 20 MEQ TABLET PO ONE (15:00)
[2019-12-18] MEDS: cefTRIAXone 1,000 MG in SYRINGE 1 EACH IV SCH (18:48)
[2019-12-18] MEDS: ENOXAPARIN 40 MG/0.4 ML SYRINGE SUBCUT SCH (20:50)
[2019-12-18] MEDS: AZITHROMYCIN 250 MG TABLET PO SCH (20:50)
[2019-12-19 05:53] LABS: Eosinophils % 0.4 % (0.00-10.9); Hematocrit 35.8 VOL% (42.0-52.0); Hemoglobin 11.7 GM/DL (14.0-18.0); Immature Granulocytes % 0.4 %; Immature Granulocytes Absolute 0.01 #; Lymphocytes # 0.4 10*3/uL (1.4-4.0); Lymphocytes % 14.5 % (21.2-54.2); Mean Corpuscular HGB Conc 32.7 GM/DL (32-36); Mean Platelet Volume 10.5 FL (9.6-12.0); Monocytes % 7.5 % (1.7-12.7); Neutrophils % 77.2 % (38.7-73.9); Platelet Count 101 T/CUMM (130-400); Red Blood Count 3.73 MC/CUMM (3.8-5.5); Red Cell Distribution Width 13.7 % (9.3-17.3); White Blood Count 2.6 T/CUMM (4-12)
[2019-12-19 06:14] LABS: Albumin 3.5 G/DL (3.4-5.0); Bilirubin,Total 0.6 MG/DL (0.2-1.0); Calcium 8.8 MG/DL (8.5-10.1); Osmolality,Calculated 275.5 MOS/KG (273-304)
[2019-12-19 06:20] LABS: Band Neutrophils 1 % (0-10); Eosinophils 1 % (0-10); Hypochromasia 1+; Lymphocytes 17 % (20-55); Segmented Neutrophils 79 % (50-85); Total Cells Counted 100
[2019-12-19 06:21] LABS: Macrocytosis Slight; Platelet Estimate Decreased
[2019-12-19] MEDS: AMIODARONE 200 MG TABLET PO SCH ×2 (10:23→21:25)
[2019-12-19] MEDS: FOLIC ACID 1 MG TABLET PO SCH (10:23)
[2019-12-19] MEDS: METOPROLOL TARTRATE 100 MG TABLET PO SCH ×2 (10:23→21:25)
[2019-12-19] MEDS: DILTIAZEM CD 120 MG CAPSULE PO SCH (10:23)
[2019-12-19] MEDS: cefTRIAXone 1,000 MG in SYRINGE 1 EACH IV SCH (14:03)
[2019-12-19] MEDS: ACETAMINOPHEN 325 MG TABLET PO PRN ×2 (16:10→21:25)
[2019-12-19] MEDS: ALBUTEROL INHALER 8 GM INH SCH ×3 (16:15→23:40)
[2019-12-19] MEDS: AZITHROMYCIN 250 MG TABLET PO SCH (21:25)
[2019-12-20] MEDS: ALBUTEROL INHALER 8 GM INH SCH ×6 (04:30→23:00)
[2019-12-20 06:05] LABS: Eosinophils % 0.9 % (0.00-10.9); Hematocrit 35.1 VOL% (42.0-52.0); Hemoglobin 11.8 GM/DL (14.0-18.0); Immature Granulocytes % 0.5 %; Immature Granulocytes Absolute 0.01 #; Lymphocytes # 0.3 10*3/uL (1.4-4.0); Lymphocytes % 12.2 % (21.2-54.2); Mean Corpuscular HGB Conc 33.6 GM/DL (32-36); Mean Corpuscular Volume 93.1 FL (87-102); Mean Platelet Volume 10.2 FL (9.6-12.0); Neutrophils % 79.4 % (38.7-73.9); Platelet Count 94 T/CUMM (130-400); Red Blood Count 3.77 MC/CUMM (3.8-5.5); Red Cell Distribution Width 13.8 % (9.3-17.3); White Blood Count 2.1 T/CUMM (4-12)
[2019-12-20 06:28] LABS: Calcium 8.6 MG/DL (8.5-10.1); Osmolality,Calculated 267.1 MOS/KG (273-304)
[2019-12-20 06:40] LABS: Band Neutrophils 1 % (0-10); Eosinophils 1 % (0-10); Hypochromasia 1+; Lymphocytes 14 % (20-55); Ovalocytes Slight; Platelet Estimate Decreased; Segmented Neutrophils 76 % (50-85); Total Cells Counted 100
[2019-12-20 06:41] LABS: Macrocytosis Slight
[2019-12-20] MEDS ORDERED: POTASSIUM CHLORIDE 20 MEQ TABLET PO ONE ×2 (08:02→08:10)
[2019-12-20] MEDS: cefTRIAXone 1,000 MG in SYRINGE 1 EACH IV SCH (10:06)
[2019-12-20] MEDS: DILTIAZEM CD 120 MG CAPSULE PO SCH (10:07)
[2019-12-20] MEDS: FOLIC ACID 1 MG TABLET PO SCH (10:07)
[2019-12-20] MEDS: AMIODARONE 200 MG TABLET PO SCH (10:08)
[2019-12-20] MEDS: METOPROLOL TARTRATE 100 MG TABLET PO SCH ×2 (10:08→21:07)
[2019-12-20] MEDS ORDERED: HYDROXYCHLOROQUINE 200 MG TABLET PO SCH (11:30)
[2019-12-20] MEDS: ACETAMINOPHEN 325 MG TABLET PO PRN ×3 (11:58→21:12)
[2019-12-20] MEDS: HYDROXYCHLOROQUINE 200 MG TABLET PO SCH (14:07)
[2019-12-20] MEDS: ZINC SULFATE 220 MG CAPSULE PO SCH (14:08)
[2019-12-20] MEDS: AZITHROMYCIN 250 MG TABLET PO SCH (21:07)
[2019-12-21] MEDS: ALBUTEROL INHALER 8 GM INH SCH ×5 (03:02→19:45)
[2019-12-21] MEDS: FOLIC ACID 1 MG TABLET PO SCH (08:52)
[2019-12-21] MEDS: HYDROXYCHLOROQUINE 200 MG TABLET PO SCH ×2 (08:52→20:48)
[2019-12-21] MEDS: METOPROLOL TARTRATE 100 MG TABLET PO SCH ×2 (08:53→20:48)
[2019-12-21] MEDS: DILTIAZEM CD 120 MG CAPSULE PO SCH (08:53)
[2019-12-21] MEDS ORDERED: HYDROXYCHLOROQUINE 200 MG TABLET PO SCH (09:00)
[2019-12-21] MEDS ORDERED: propofoL 200 MG/20 ML VIAL IV ONE ×3 (10:42→12:50)
[2019-12-21] MEDS ORDERED: SUCCINYLCHOLINE 200 MG/10 ML VIAL ONE (10:44)
[2019-12-21] MEDS ORDERED: MORPHINE 4 MG/1 ML VIAL ONE (11:07)
[2019-12-21] MEDS ORDERED: DIAZEPAM 10 MG/2 ML SYRINGE ONE (11:12)
[2019-12-21] MEDS ORDERED: MIDAZOLAM 10 MG/2 ML VIAL ONE (11:13)
[2019-12-21 11:47] LABS: ABG Base Excess -0.9 MMOL/L (-2.5-2.5); ABG HCO3 27.9 MMOL/L (20-26); ABG Oxygen Saturation 99.2 % (95-100); ABG PH 7.238 (7.35-7.45); ABG PO2 298.2 MM HG (80-95)
[2019-12-21] MEDS: MIDAZOLAM 100 MG in SODIUM CHLORIDE 0.9% 80 ML IV PRN (12:18)
[2019-12-21 12:46] LABS: Basophils % 0.1 % (0.0-0.8); Eosinophils % 0.1 % (0.00-10.9); Hematocrit 37.1 VOL% (42.0-52.0); Hemoglobin 12.1 GM/DL (14.0-18.0); Immature Granulocytes % 0.7 %; Immature Granulocytes Absolute 0.05 #; Lymphocytes # 0.6 10*3/uL (1.4-4.0); Lymphocytes % 8.1 % (21.2-54.2); Mean Corpuscular HGB Conc 32.6 GM/DL (32-36); Mean Corpuscular Volume 95.4 FL (87-102); Mean Platelet Volume 10.5 FL (9.6-12.0); Monocytes % 5.8 % (1.7-12.7); Neutrophils % 85.2 % (38.7-73.9); Platelet Count 173 T/CUMM (130-400); Red Blood Count 3.89 MC/CUMM (3.8-5.5); Red Cell Distribution Width 13.9 % (9.3-17.3); White Blood Count 7.1 T/CUMM (4-12)
[2019-12-21] MEDS ORDERED: MIDAZOLAM 10 MG/2 ML VIAL IV ONE (12:50)
[2019-12-21] MEDS ORDERED: DIAZEPAM 10 MG/2 ML SYRINGE IV ONE (12:51)
[2019-12-21] MEDS ORDERED: MORPHINE 4 MG/1 ML VIAL IV ONE (12:52)
[2019-12-21] MEDS ORDERED: SUCCINYLCHOLINE 200 MG/10 ML VIAL IV ONE (12:53)
[2019-12-21 13:13] LABS: Albumin 3.1 G/DL (3.4-5.0); Bilirubin,Total 0.9 MG/DL (0.2-1.0); Calcium 8.3 MG/DL (8.5-10.1); Osmolality,Calculated 263.5 MOS/KG (273-304); Total Protein 7.3 G/DL (6.4-8.3)
[2019-12-21] MEDS: cefTRIAXone 1,000 MG in SYRINGE 1 EACH IV SCH (13:26)
[2019-12-21] MEDS ORDERED: SODIUM CHLORIDE 0.9% 1,000 ML IV ONE (13:30)
[2019-12-21] MEDS ORDERED: PHENYLEPHRINE DRIP 40 MG/250 ML PREMIX IV PRN (13:30)
[2019-12-21] MEDS ORDERED: PHENYLEPHRINE INJ 160 MG in SODIUM CHLORIDE 0.9% 234 ML IV PRN (16:09)
[2019-12-21] MEDS: methylPREDNISolone SOD SUC 40 MG/1 ML VIAL IV SCH (18:11)
[2019-12-21] MEDS: ENOXAPARIN 40 MG/0.4 ML SYRINGE SUBCUT SCH (20:48)
[2019-12-22] MEDS: ALBUTEROL INHALER 8 GM INH SCH ×7 (00:03→21:42)
[2019-12-22] MEDS: methylPREDNISolone SOD SUC 40 MG/1 ML VIAL IV SCH ×3 (00:17→18:05)
[2019-12-22 02:15] LABS: Hematocrit 35.6 VOL% (42.0-52.0); Hemoglobin 11.6 GM/DL (14.0-18.0); Immature Granulocytes % 0.3 %; Immature Granulocytes Absolute 0.01 #; Lymphocytes # 0.1 10*3/uL (1.4-4.0); Lymphocytes % 3.7 % (21.2-54.2); Mean Corpuscular HGB Conc 32.6 GM/DL (32-36); Monocytes % 2.5 % (1.7-12.7); Neutrophils % 93.5 % (38.7-73.9); Platelet Count 127 T/CUMM (130-400); Red Blood Count 3.71 MC/CUMM (3.8-5.5); Red Cell Distribution Width 13.8 % (9.3-17.3); White Blood Count 3.2 T/CUMM (4-12)
[2019-12-22 02:34] LABS: Calcium 8.8 MG/DL (8.5-10.1)
[2019-12-22 02:40] LABS: Prealbumin 12.8 MG/DL (20-40)
[2019-12-22 02:43] LABS: Hypochromasia Slight; Lymphocytes 2 % (20-55); Platelet Estimate Adequate; Segmented Neutrophils 95 % (50-85); Total Cells Counted 100
[2019-12-22 04:55] LABS: ABG Base Excess -0.3 MMOL/L (-2.5-2.5); ABG HCO3 24.2 MMOL/L (20-26); ABG Oxygen Saturation 99.3 % (95-100); ABG PH 7.341 (7.35-7.45); ABG TCO2 23.4 MMOL/L (23-27); Allen Test Positive; Pt O2 Delivery Device Ventilator
[2019-12-22] MEDS: MIDAZOLAM 100 MG in SODIUM CHLORIDE 0.9% 80 ML IV PRN ×2 (05:13→19:15)
[2019-12-22] MEDS: HYDROXYCHLOROQUINE 200 MG TABLET PO SCH ×2 (09:23→20:53)
[2019-12-22] MEDS: ZINC SULFATE 220 MG CAPSULE PO SCH (09:23)
[2019-12-22] MEDS: DILTIAZEM CD 120 MG CAPSULE PO SCH (09:23)
[2019-12-22] MEDS: FOLIC ACID 1 MG TABLET PO SCH (09:24)
[2019-12-22] MEDS: METOPROLOL TARTRATE 100 MG TABLET PO SCH ×2 (09:24→20:52)
[2019-12-22] MEDS: cefTRIAXone 1,000 MG in SYRINGE 1 EACH IV SCH (09:27)
[2019-12-22] MEDS: PANTOPRAZOLE 40 MG VIAL IV SCH (09:27)
[2019-12-22] MEDS ORDERED: FUROSEMIDE 40 MG/4 ML VIAL IV ONE (11:37)
[2019-12-22] MEDS: ENOXAPARIN 40 MG/0.4 ML SYRINGE SUBCUT SCH (20:52)
[2019-12-23] MEDS: ALBUTEROL INHALER 8 GM INH SCH ×7 (00:02→22:02)
[2019-12-23] MEDS: methylPREDNISolone SOD SUC 40 MG/1 ML VIAL IV SCH ×3 (00:03→15:12)
[2019-12-23 02:51] LABS: PT Patient Result 10.4 SECS (9.8-11.9); Partial Thromboplastin Time 32.6 SECS (23.9-33.8)
[2019-12-23 02:52] LABS: Calcium 9.1 MG/DL (8.5-10.1); Osmolality,Calculated 293.3 MOS/KG (273-304)
[2019-12-23 03:15] LABS: Ferritin 728.5 ng/ml (26-388)
[2019-12-23 03:51] LABS: ABG Base Excess 1.9 MMOL/L (-2.5-2.5); ABG HCO3 25.9 MMOL/L (20-26); ABG Oxygen Saturation 91.2 % (95-100); ABG PCO2 55.9 MM HG (35-48); ABG PH 7.331 (7.35-7.45); ABG PO2 64.5 MM HG (80-95); ABG TCO2 25.4 MMOL/L (23-27)
[2019-12-23 04:45] LABS: Hematocrit 36.3 VOL% (42.0-52.0); Hemoglobin 11.3 GM/DL (14.0-18.0); Immature Granulocytes % 0.9 %; Immature Granulocytes Absolute 0.04 #; Lymphocytes # 0.2 10*3/uL (1.4-4.0); Lymphocytes % 3.6 % (21.2-54.2); Mean Corpuscular HGB Conc 31.1 GM/DL (32-36); Mean Corpuscular Volume 98.9 FL (87-102); Mean Platelet Volume 10.3 FL (9.6-12.0); Monocytes % 4.5 % (1.7-12.7); Platelet Count 181 T/CUMM (130-400); Red Blood Count 3.67 MC/CUMM (3.8-5.5); Red Cell Distribution Width 13.8 % (9.3-17.3); White Blood Count 4.7 T/CUMM (4-12)
[2019-12-23 05:33] LABS: Band Neutrophils 1 % (0-10); Hypochromasia Slight; Lymphocytes 1 % (20-55); Platelet Estimate Adequate; Segmented Neutrophils 93 % (50-85); Total Cells Counted 100
[2019-12-23] MEDS: HYDROXYCHLOROQUINE 200 MG TABLET PO SCH ×2 (08:15→21:09)
[2019-12-23] MEDS: METOPROLOL TARTRATE 100 MG TABLET PO SCH ×2 (08:15→21:09)
[2019-12-23] MEDS: FOLIC ACID 1 MG TABLET PO SCH (08:15)
[2019-12-23] MEDS: DILTIAZEM CD 120 MG CAPSULE PO SCH (08:15)
[2019-12-23] MEDS: PANTOPRAZOLE 40 MG VIAL IV SCH (08:18)
[2019-12-23] MEDS: cefTRIAXone 1,000 MG in SYRINGE 1 EACH IV SCH (08:21)
[2019-12-23] MEDS: MIDAZOLAM 100 MG in SODIUM CHLORIDE 0.9% 80 ML IV PRN ×2 (08:27→17:08)
[2019-12-23] MEDS: fentaNYL INJ 1,250 MCG in SODIUM CHLORIDE 0.9% 225 ML IV PRN (15:12)
[2019-12-23] MEDS: ENOXAPARIN 40 MG/0.4 ML SYRINGE SUBCUT SCH (21:09)
[2019-12-24] MEDS: MIDAZOLAM 100 MG in SODIUM CHLORIDE 0.9% 80 ML IV PRN ×3 (01:30→18:21)
[2019-12-24] MEDS: methylPREDNISolone SOD SUC 40 MG/1 ML VIAL IV SCH ×3 (02:08→16:16)
[2019-12-24] MEDS: ALBUTEROL INHALER 8 GM INH SCH ×6 (02:09→23:50)
[2019-12-24 03:45] LABS: ABG Base Excess 4.6 MMOL/L (-2.5-2.5); ABG HCO3 28.6 MMOL/L (20-26); ABG Oxygen Saturation 99.1 % (95-100); ABG PCO2 56.6 MM HG (35-48); ABG PH 7.356 (7.35-7.45); ABG TCO2 28.4 MMOL/L (23-27)
[2019-12-24] MEDS: fentaNYL INJ 1,250 MCG in SODIUM CHLORIDE 0.9% 225 ML IV PRN ×3 (04:19→19:15)
[2019-12-24 05:01] LABS: INR 0.9; PT Patient Result 10.2 SECS (9.8-11.9); Partial Thromboplastin Time 28.9 SECS (23.9-33.8)
[2019-12-24 05:12] LABS: Calcium 9.4 MG/DL (8.5-10.1)
[2019-12-24 05:22] LABS: Bilirubin,Direct 0.1 MG/DL (0.0-0.20); Bilirubin,Indirect 0.6 MG/DL (0.0-1.0); Bilirubin,Total 0.7 MG/DL (0.2-1.0); Ferritin 547.6 ng/ml (26-388); Total Protein 7.3 G/DL (6.4-8.3)
[2019-12-24] MEDS: METOPROLOL TARTRATE 100 MG TABLET PO SCH ×2 (09:02→20:28)
[2019-12-24] MEDS: HYDROXYCHLOROQUINE 200 MG TABLET PO SCH ×2 (09:02→20:28)
[2019-12-24] MEDS: FOLIC ACID 1 MG TABLET PO SCH (09:02)
[2019-12-24] MEDS: ZINC SULFATE 220 MG CAPSULE PO SCH (09:02)
[2019-12-24] MEDS: DILTIAZEM CD 120 MG CAPSULE PO SCH ×2 (09:02→11:12)
[2019-12-24] MEDS: PANTOPRAZOLE 40 MG VIAL IV SCH (09:04)
[2019-12-24] MEDS: cefTRIAXone 1,000 MG in SYRINGE 1 EACH IV SCH (09:06)
[2019-12-24] MEDS: INSULIN REGULAR 100 UNIT/ML SUBCUT SCH ×2 (12:28→17:50)
[2019-12-24] MEDS: ENOXAPARIN 40 MG/0.4 ML SYRINGE SUBCUT SCH (20:28)
[2019-12-25] MEDS: methylPREDNISolone SOD SUC 40 MG/1 ML VIAL IV SCH ×3 (00:20→18:04)
[2019-12-25] MEDS: INSULIN REGULAR 100 UNIT/ML SUBCUT SCH ×4 (00:23→19:13)
[2019-12-25] MEDS: ALBUTEROL INHALER 8 GM INH SCH ×6 (03:15→23:31)
[2019-12-25] MEDS: fentaNYL INJ 1,250 MCG in SODIUM CHLORIDE 0.9% 225 ML IV PRN ×4 (03:30→23:40)
[2019-12-25] MEDS: MIDAZOLAM 100 MG in SODIUM CHLORIDE 0.9% 80 ML IV PRN ×3 (03:35→21:41)
[2019-12-25 03:38] LABS: Allen Test Positive; Pt O2 Delivery Device Ventilator
[2019-12-25 03:39] LABS: ABG Base Excess 5.9 MMOL/L (-2.5-2.5); ABG HCO3 29.7 MMOL/L (20-26); ABG Oxygen Saturation 95.1 % (95-100); ABG PCO2 61.3 MM HG (35-48); ABG PH 7.346 (7.35-7.45)
[2019-12-25 05:16] LABS: Basophils % 0.2 % (0.0-0.8); Hematocrit 36.2 VOL% (42.0-52.0); Hemoglobin 11.1 GM/DL (14.0-18.0); Immature Granulocytes % 1.1 %; Immature Granulocytes Absolute 0.06 #; Lymphocytes # 0.1 10*3/uL (1.4-4.0); Lymphocytes % 2.5 % (21.2-54.2); Mean Corpuscular HGB Conc 30.7 GM/DL (32-36); Mean Corpuscular Volume 102.3 FL (87-102); Mean Platelet Volume 9.8 FL (9.6-12.0); Monocytes % 7.1 % (1.7-12.7); Neutrophils % 89.1 % (38.7-73.9); Platelet Count 240 T/CUMM (130-400); Red Blood Count 3.54 MC/CUMM (3.8-5.5); Red Cell Distribution Width 13.4 % (9.3-17.3); White Blood Count 5.6 T/CUMM (4-12)
[2019-12-25 05:21] LABS: Calcium 9.6 MG/DL (8.5-10.1); Osmolality,Calculated 306.8 MOS/KG (273-304); Prealbumin 32.1 MG/DL (20-40)
[2019-12-25 05:26] LABS: Albumin 3.2 G/DL (3.4-5.0); Bilirubin,Direct 0.16 MG/DL (0.0-0.20); Bilirubin,Indirect 0.2 MG/DL (0.0-1.0); Bilirubin,Total 0.4 MG/DL (0.2-1.0); Ferritin 522.9 ng/ml (26-388); Total Protein 7.5 G/DL (6.4-8.3)
[2019-12-25 05:28] LABS: PT Patient Result 10.6 SECS (9.8-11.9)
[2019-12-25 05:37] LABS: Lymphocytes 4 % (20-55); Segmented Neutrophils 94 % (50-85); Total Cells Counted 100
[2019-12-25 05:38] LABS: Hypochromasia Slight; Platelet Estimate Normal
[2019-12-25] MEDS: DILTIAZEM CD 120 MG CAPSULE PO SCH (08:15)
[2019-12-25] MEDS: FOLIC ACID 1 MG TABLET PO SCH (08:15)
[2019-12-25] MEDS: HYDROXYCHLOROQUINE 200 MG TABLET PO SCH ×2 (08:15→20:01)
[2019-12-25] MEDS: METOPROLOL TARTRATE 100 MG TABLET PO SCH ×2 (08:15→20:01)
[2019-12-25] MEDS: PANTOPRAZOLE 40 MG VIAL IV SCH (08:18)
[2019-12-25] MEDS: cefTRIAXone 1,000 MG in SYRINGE 1 EACH IV SCH (08:25)
[2019-12-25] MEDS: ENOXAPARIN 40 MG/0.4 ML SYRINGE SUBCUT SCH (20:01)
[2019-12-25] MEDS: ACETAMINOPHEN 325 MG TABLET PO PRN (21:02)
[2019-12-26] MEDS: methylPREDNISolone SOD SUC 40 MG/1 ML VIAL IV SCH ×3 (00:03→15:58)
[2019-12-26] MEDS: INSULIN REGULAR 100 UNIT/ML SUBCUT SCH ×5 (00:06→23:46)
[2019-12-26] MEDS: ALBUTEROL INHALER 8 GM INH SCH ×6 (03:30→23:45)
[2019-12-26 04:16] LABS: ABG Base Excess 7.3 MMOL/L (-2.5-2.5); ABG HCO3 31.1 MMOL/L (20-26); ABG Oxygen Saturation 97.3 % (95-100); ABG PCO2 61.4 MM HG (35-48); ABG PH 7.362 (7.35-7.45); ABG PO2 94.4 MM HG (80-95); ABG TCO2 31.2 MMOL/L (23-27); Allen Test Positive; Pt O2 Delivery Device Ventilator
[2019-12-26 04:17] LABS: Hematocrit 36.3 VOL% (42.0-52.0); Hemoglobin 10.9 GM/DL (14.0-18.0); Immature Granulocytes % 0.7 %; Immature Granulocytes Absolute 0.04 #; Lymphocytes # 0.2 10*3/uL (1.4-4.0); Lymphocytes % 2.9 % (21.2-54.2); Mean Corpuscular Volume 102.8 FL (87-102); Monocytes % 7.6 % (1.7-12.7); Neutrophils % 88.8 % (38.7-73.9); Platelet Count 254 T/CUMM (130-400); Red Blood Count 3.53 MC/CUMM (3.8-5.5); Red Cell Distribution Width 13.4 % (9.3-17.3); White Blood Count 5.8 T/CUMM (4-12)
[2019-12-26 04:28] LABS: Calcium 9.7 MG/DL (8.5-10.1); Osmolality,Calculated 308.7 MOS/KG (273-304)
[2019-12-26 04:57] LABS: Lymphocytes 2 % (20-55); Segmented Neutrophils 90 % (50-85); Total Cells Counted 100
[2019-12-26 04:58] LABS: Hypochromasia 1+; Microcytosis 1+; Platelet Estimate Normal
[2019-12-26] MEDS: MIDAZOLAM 100 MG in SODIUM CHLORIDE 0.9% 80 ML IV PRN ×2 (07:06→17:11)
[2019-12-26] MEDS: fentaNYL INJ 1,250 MCG in SODIUM CHLORIDE 0.9% 225 ML IV PRN ×2 (07:28→15:55)
[2019-12-26] MEDS: PANTOPRAZOLE 40 MG VIAL IV SCH (08:38)
[2019-12-26] MEDS: METOPROLOL TARTRATE 100 MG TABLET PO SCH ×2 (08:38→20:02)
[2019-12-26] MEDS: DILTIAZEM 60 MG TABLET PO SCH ×2 (08:39→20:03)
[2019-12-26] MEDS: FOLIC ACID 1 MG TABLET PO SCH (08:39)
[2019-12-26] MEDS: HYDROXYCHLOROQUINE 200 MG TABLET PO SCH (14:39)
[2019-12-26] MEDS: ENOXAPARIN 40 MG/0.4 ML SYRINGE SUBCUT SCH (20:03)
[2019-12-27] MEDS: methylPREDNISolone SOD SUC 40 MG/1 ML VIAL IV SCH ×2 (00:18→09:50)
[2019-12-27] MEDS: fentaNYL INJ 1,250 MCG in SODIUM CHLORIDE 0.9% 225 ML IV PRN ×3 (00:22→18:49)
[2019-12-27] MEDS: MIDAZOLAM 100 MG in SODIUM CHLORIDE 0.9% 80 ML IV PRN ×3 (02:15→22:23)
[2019-12-27] MEDS: ALBUTEROL INHALER 8 GM INH SCH ×5 (03:50→18:30)
[2019-12-27 05:01] LABS: ABG HCO3 32.8 MMOL/L (20-26); ABG Oxygen Saturation 96.2 % (95-100); ABG PCO2 62.1 MM HG (35-48); ABG PH 7.377 (7.35-7.45); ABG PO2 82.4 MM HG (80-95); ABG TCO2 32.8 MMOL/L (23-27)
[2019-12-27] MEDS: INSULIN REGULAR 100 UNIT/ML SUBCUT SCH ×3 (05:25→18:09)
[2019-12-27] MEDS: FOLIC ACID 1 MG TABLET PO SCH (09:50)
[2019-12-27] MEDS: METOPROLOL TARTRATE 100 MG TABLET PO SCH ×2 (09:50→22:22)
[2019-12-27] MEDS: DILTIAZEM 60 MG TABLET PO SCH ×2 (09:50→22:19)
[2019-12-27] MEDS: PANTOPRAZOLE 40 MG VIAL IV SCH (09:52)
[2019-12-27] MEDS: ACETAMINOPHEN 325 MG TABLET PO PRN ×2 (09:55→16:12)
[2019-12-27 10:19] LABS: Eosinophils % 0.2 % (0.00-10.9); Hematocrit 35.6 VOL% (42.0-52.0); Immature Granulocytes % 0.8 %; Immature Granulocytes Absolute 0.04 #; Lymphocytes # 0.2 10*3/uL (1.4-4.0); Lymphocytes % 4.2 % (21.2-54.2); Mean Corpuscular HGB Conc 30.9 GM/DL (32-36); Mean Corpuscular Volume 100.6 FL (87-102); Mean Platelet Volume 10.2 FL (9.6-12.0); Monocytes % 12.1 % (1.7-12.7); Neutrophils % 82.7 % (38.7-73.9); Platelet Count 260 T/CUMM (130-400); Red Blood Count 3.54 MC/CUMM (3.8-5.5); Red Cell Distribution Width 13.1 % (9.3-17.3); White Blood Count 5.3 T/CUMM (4-12)
[2019-12-27 10:33] LABS: Calcium 9.7 MG/DL (8.5-10.1); Osmolality,Calculated 306.7 MOS/KG (273-304)
[2019-12-27 10:49] LABS: Hypochromasia 1+; Lymphocytes 2 % (20-55); Microcytosis Slight; Segmented Neutrophils 85 % (50-85); Total Cells Counted 100
[2019-12-27 10:50] LABS: Platelet Estimate Normal
[2019-12-27 12:46] LABS: ABG Base Excess 8.4 MMOL/L (-2.5-2.5); ABG HCO3 32.1 MMOL/L (20-26); ABG PCO2 64.2 MM HG (35-48); ABG PH 7.359 (7.35-7.45); ABG PO2 77.3 MM HG (80-95); ABG TCO2 32.5 MMOL/L (23-27)
[2019-12-27] MEDS: INSULIN GLARGINE 100 UNIT/ML SUBCUT SCH (22:21)
[2019-12-27] MEDS: ENOXAPARIN 40 MG/0.4 ML SYRINGE SUBCUT SCH (22:22)
[2019-12-28] MEDS: ALBUTEROL INHALER 8 GM INH SCH ×6 (00:23→18:10)
[2019-12-28] MEDS: INSULIN REGULAR 100 UNIT/ML SUBCUT SCH ×4 (00:24→18:09)
[2019-12-28] MEDS: ACETAMINOPHEN 325 MG TABLET PO PRN (00:44)
[2019-12-28] MEDS: fentaNYL INJ 1,250 MCG in SODIUM CHLORIDE 0.9% 225 ML IV PRN ×3 (01:22→18:46)
[2019-12-28 03:35] LABS: ABG Base Excess 6.5 MMOL/L (-2.5-2.5); ABG HCO3 33.9 MMOL/L (20-26); ABG PCO2 60.3 MM HG (35-48); ABG PH 7.368 (7.35-7.45); ABG PO2 75.7 MM HG (80-95); ABG TCO2 35.8 MMOL/L (23-27)
[2019-12-28 03:39] LABS: ABG Oxygen Saturation 94.5 % (95-100)
[2019-12-28 04:49] LABS: Eosinophils % 0.4 % (0.00-10.9); Hematocrit 35.7 VOL% (42.0-52.0); Hemoglobin 10.9 GM/DL (14.0-18.0); Immature Granulocytes Absolute 0.05 #; Lymphocytes # 0.3 10*3/uL (1.4-4.0); Lymphocytes % 6.3 % (21.2-54.2); Mean Corpuscular HGB Conc 30.5 GM/DL (32-36); Mean Corpuscular Volume 101.4 FL (87-102); Mean Platelet Volume 10.4 FL (9.6-12.0); Monocytes % 16.6 % (1.7-12.7); Neutrophils % 75.7 % (38.7-73.9); Platelet Count 244 T/CUMM (130-400); Red Blood Count 3.52 MC/CUMM (3.8-5.5); Red Cell Distribution Width 13.2 % (9.3-17.3); White Blood Count 5.1 T/CUMM (4-12)
[2019-12-28 05:23] LABS: Calcium 9.3 MG/DL (8.5-10.1); Osmolality,Calculated 311.4 MOS/KG (273-304)
[2019-12-28 05:24] LABS: Lymphocytes 10 % (20-55); Segmented Neutrophils 68 % (50-85); Total Cells Counted 100
[2019-12-28 05:25] LABS: Atypical Lymphocytes Few; Hypochromasia 1+; Platelet Estimate Normal
[2019-12-28 05:29] LABS: Prealbumin 34.3 MG/DL (20-40)
[2019-12-28] MEDS: MIDAZOLAM 100 MG in SODIUM CHLORIDE 0.9% 80 ML IV PRN ×2 (09:15→19:57)
[2019-12-28] MEDS: DILTIAZEM 60 MG TABLET PO SCH ×2 (10:30→22:50)
[2019-12-28] MEDS: FOLIC ACID 1 MG TABLET PO SCH (10:30)
[2019-12-28] MEDS: predniSONE 20 MG TABLET PER TUBE SCH (10:30)
[2019-12-28] MEDS: METOPROLOL TARTRATE 100 MG TABLET PO SCH ×2 (10:30→22:50)
[2019-12-28] MEDS: PANTOPRAZOLE 40 MG VIAL IV SCH (10:30)
[2019-12-28] MEDS ORDERED: VANCOMYCIN INJ 2,500 MG in SODIUM CHLORIDE 0.9% 500 ML IV ONE (12:00)
[2019-12-28 13:50] LABS: Apearance,Urine CLOUDY (Clear); Bacteria,Urine Occasional /HPF (Few); Bilirubin,Urine Negative (Negative); Blood, Urine Large mg/dL (Negative); Glucose,Urine (UA) Negative (Negative); Ketones,Urine Negative (Negative); Mucus,Urine Occasional /LPF (Occasional); Nitrite,Urine Negative (Negative); Protein,Urine Negative; RBC,Urine 175 /HPF (0-4); Urine Color Yellow (Yellow); Urine Specific Gravity 1.025 (1.001-1.035); Urine Urobilinogen < 2.0 EU/DL (0.2-1.0); WBC,Urine 100 /HPF (0-6)
[2019-12-28] MEDS: PIPERACILLIN/TAZOBACTAM 3,375 MG in SODIUM CHLORIDE 0.9% 100 ML IV SCH (16:38)
[2019-12-28] MEDS: ENOXAPARIN 40 MG/0.4 ML SYRINGE SUBCUT SCH (22:50)
[2019-12-28] MEDS: INSULIN GLARGINE 100 UNIT/ML SUBCUT SCH (22:50)
[2019-12-29] MEDS: fentaNYL INJ 1,250 MCG in SODIUM CHLORIDE 0.9% 225 ML IV PRN ×2 (00:56→09:45)
[2019-12-29] MEDS: INSULIN REGULAR 100 UNIT/ML SUBCUT SCH ×5 (00:57→23:06)
[2019-12-29] MEDS: ALBUTEROL INHALER 8 GM INH SCH ×7 (00:57→23:00)
[2019-12-29] MEDS: PIPERACILLIN/TAZOBACTAM 3,375 MG in SODIUM CHLORIDE 0.9% 100 ML IV SCH ×3 (01:04→16:12)
[2019-12-29] MEDS: VANCOMYCIN INJ 1,750 MG in SODIUM CHLORIDE 0.9% 500 ML IV SCH ×2 (01:04→12:00)
[2019-12-29] MEDS: MIDAZOLAM 100 MG in SODIUM CHLORIDE 0.9% 80 ML IV PRN (07:20)
[2019-12-29 08:11] LABS: ABG Base Excess 4.9 MMOL/L (-2.5-2.5); ABG HCO3 31.5 MMOL/L (20-26); ABG Oxygen Saturation 95.5 % (95-100); ABG PCO2 56.2 MM HG (35-48); ABG PH 7.366 (7.35-7.45); ABG PO2 83.4 MM HG (80-95); ABG TCO2 33.2 MMOL/L (23-27)
[2019-12-29] MEDS: PANTOPRAZOLE 40 MG VIAL IV SCH (08:51)
[2019-12-29] MEDS: DILTIAZEM 60 MG TABLET PO SCH ×2 (08:51→22:39)
[2019-12-29] MEDS: METOPROLOL TARTRATE 100 MG TABLET PO SCH ×2 (08:51→22:38)
[2019-12-29] MEDS: FOLIC ACID 1 MG TABLET PO SCH (08:51)
[2019-12-29] MEDS: predniSONE 20 MG TABLET PER TUBE SCH (08:51)
[2019-12-29 09:42] LABS: Eosinophils % 0.6 % (0.00-10.9); Hematocrit 36.3 VOL% (42.0-52.0); Hemoglobin 10.8 GM/DL (14.0-18.0); Immature Granulocytes % 1.3 %; Immature Granulocytes Absolute 0.08 #; Lymphocytes # 0.3 10*3/uL (1.4-4.0); Lymphocytes % 5.2 % (21.2-54.2); Mean Corpuscular HGB Conc 29.8 GM/DL (32-36); Mean Corpuscular Volume 103.7 FL (87-102); Monocytes % 14.9 % (1.7-12.7); Platelet Count 252 T/CUMM (130-400); Red Cell Distribution Width 13.2 % (9.3-17.3); White Blood Count 6.4 T/CUMM (4-12)
[2019-12-29 10:12] LABS: Calcium 9.5 MG/DL (8.5-10.1); Osmolality,Calculated 303.6 MOS/KG (273-304)
[2019-12-29] MEDS: DEXMEDETOMIDINE 200 MCG in SODIUM CHLORIDE 0.9% 48 ML IV PRN (19:06)
[2019-12-29] MEDS ORDERED: INSULIN GLARGINE 100 UNIT/ML SUBCUT SCH (21:00)
[2019-12-29] MEDS: ENOXAPARIN 40 MG/0.4 ML SYRINGE SUBCUT SCH (22:37)
[2019-12-30] MEDS: PIPERACILLIN/TAZOBACTAM 3,375 MG in SODIUM CHLORIDE 0.9% 100 ML IV SCH ×2 (00:45→09:07)
[2019-12-30] MEDS: DEXMEDETOMIDINE 200 MCG in SODIUM CHLORIDE 0.9% 48 ML IV PRN ×3 (00:46→09:35)
[2019-12-30] MEDS: ALBUTEROL INHALER 8 GM INH SCH ×6 (03:00→23:00)
[2019-12-30 04:27] LABS: ABG Base Excess 2.6 MMOL/L (-2.5-2.5); ABG HCO3 27.6 MMOL/L (20-26); ABG Oxygen Saturation 96.6 % (95-100); ABG PCO2 44.5 MM HG (35-48); ABG PH 7.411 (7.35-7.45); Allen Test Positive; Pt O2 Delivery Device Ventilator
[2019-12-30 05:21] LABS: Basophils % 0.2 % (0.0-0.8); Eosinophils % 0.5 % (0.00-10.9); Hematocrit 34.3 VOL% (42.0-52.0); Hemoglobin 10.9 GM/DL (14.0-18.0); Immature Granulocytes % 0.8 %; Immature Granulocytes Absolute 0.05 #; Lymphocytes # 0.3 10*3/uL (1.4-4.0); Lymphocytes % 4.9 % (21.2-54.2); Mean Corpuscular HGB Conc 31.8 GM/DL (32-36); Mean Corpuscular Volume 99.1 FL (87-102); Mean Platelet Volume 10.4 FL (9.6-12.0); Monocytes % 13.1 % (1.7-12.7); Neutrophils % 80.5 % (38.7-73.9); Platelet Count 247 T/CUMM (130-400); Red Blood Count 3.46 MC/CUMM (3.8-5.5)
[2019-12-30 05:56] LABS: Calcium 9.2 MG/DL (8.5-10.1); Osmolality,Calculated 299.8 MOS/KG (273-304)
[2019-12-30 06:46] LABS: Band Neutrophils 1 % (0-10); Lymphocytes 8 % (20-55); Segmented Neutrophils 82 % (50-85); Total Cells Counted 100
[2019-12-30 06:47] LABS: Anisocytosis 1+; Platelet Estimate Normal; Tear Drop Cells Few
[2019-12-30] MEDS: PANTOPRAZOLE 40 MG VIAL IV SCH (09:08)
[2019-12-30] MEDS: METOPROLOL TARTRATE 100 MG TABLET PO SCH ×2 (09:08→20:20)
[2019-12-30] MEDS: FOLIC ACID 1 MG TABLET PO SCH (09:08)
[2019-12-30] MEDS: predniSONE 20 MG TABLET PER TUBE SCH (09:08)
[2019-12-30] MEDS: DILTIAZEM 60 MG TABLET PO SCH ×2 (09:08→20:20)
[2019-12-30] MEDS: INSULIN REGULAR 100 UNIT/ML SUBCUT SCH ×4 (09:18→20:26)
[2019-12-30] MEDS ORDERED: DEXTROSE 10% 250 ML BAG IV PRN (11:39)
[2019-12-30] MEDS ORDERED: GLUCAGON 1 MG VIAL IM PRN (11:39)
[2019-12-30] MEDS ORDERED: LEVOFLOXACIN INJ 750 MG in PREMIX 1 EACH IV SCH (15:00)
[2019-12-30] MEDS: ENOXAPARIN 40 MG/0.4 ML SYRINGE SUBCUT SCH (20:19)
[2019-12-30] MEDS: INSULIN GLARGINE 100 UNIT/ML SUBCUT SCH (20:19)
[2019-12-31] MEDS: ALBUTEROL INHALER 8 GM INH SCH ×6 (03:00→23:30)
[2019-12-31 04:50] LABS: Basophils % 0.1 % (0.0-0.8); Eosinophils % 0.4 % (0.00-10.9); Hematocrit 34.4 VOL% (42.0-52.0); Hemoglobin 11.2 GM/DL (14.0-18.0); Immature Granulocytes % 1.5 %; Immature Granulocytes Absolute 0.12 #; Lymphocytes # 0.3 10*3/uL (1.4-4.0); Mean Corpuscular HGB Conc 32.6 GM/DL (32-36); Mean Corpuscular Volume 94.8 FL (87-102); Mean Platelet Volume 10.4 FL (9.6-12.0); Monocytes % 11.4 % (1.7-12.7); Neutrophils % 82.6 % (38.7-73.9); Platelet Count 273 T/CUMM (130-400); Red Blood Count 3.63 MC/CUMM (3.8-5.5); Red Cell Distribution Width 13.2 % (9.3-17.3); White Blood Count 7.8 T/CUMM (4-12)
[2019-12-31 05:12] LABS: Calcium 9.3 MG/DL (8.5-10.1)
[2019-12-31 06:29] LABS: Band Neutrophils 5 % (0-10); Lymphocytes 5 % (20-55); Platelet Estimate Normal; Segmented Neutrophils 82 % (50-85); Total Cells Counted 100
[2019-12-31 06:30] LABS: Anisocytosis 1+; Macrocytosis Slight
[2019-12-31] MEDS: METOPROLOL TARTRATE 100 MG TABLET PO SCH ×2 (08:18→20:37)
[2019-12-31] MEDS: DILTIAZEM 60 MG TABLET PO SCH ×2 (08:18→21:10)
[2019-12-31] MEDS: POTASSIUM CHLORIDE 20 MEQ TABLET PO PRN ×2 (08:18→11:54)
[2019-12-31] MEDS: FOLIC ACID 1 MG TABLET PO SCH (08:19)
[2019-12-31] MEDS: PANTOPRAZOLE 40 MG VIAL IV SCH (08:19)
[2019-12-31] MEDS: predniSONE 20 MG TABLET PER TUBE SCH (08:29)
[2019-12-31] MEDS: INSULIN REGULAR 100 UNIT/ML SUBCUT SCH ×4 (08:29→21:09)
[2019-12-31] MEDS: predniSONE 20 MG TABLET PO SCH (09:41)
[2019-12-31] MEDS: MONTELUKAST 10 MG TABLET PO SCH (20:37)
[2019-12-31] MEDS: ENOXAPARIN 40 MG/0.4 ML SYRINGE SUBCUT SCH (20:37)
[2019-12-31] MEDS: INSULIN GLARGINE 100 UNIT/ML SUBCUT SCH (21:09)
[2020-01-01] MEDS: ALBUTEROL INHALER 8 GM INH SCH ×5 (03:20→21:14)
[2020-01-01 04:53] LABS: Basophils % 0.1 % (0.0-0.8); Eosinophils % 0.4 % (0.00-10.9); Hematocrit 35.6 VOL% (42.0-52.0); Hemoglobin 11.6 GM/DL (14.0-18.0); Immature Granulocytes % 2.7 %; Immature Granulocytes Absolute 0.26 #; Lymphocytes # 0.5 10*3/uL (1.4-4.0); Lymphocytes % 4.6 % (21.2-54.2); Mean Corpuscular HGB Conc 32.6 GM/DL (32-36); Mean Corpuscular Volume 94.9 FL (87-102); Mean Platelet Volume 10.5 FL (9.6-12.0); Monocytes % 10.3 % (1.7-12.7); Neutrophils % 81.9 % (38.7-73.9); Platelet Count 337 T/CUMM (130-400); Red Blood Count 3.75 MC/CUMM (3.8-5.5); Red Cell Distribution Width 13.4 % (9.3-17.3); White Blood Count 9.7 T/CUMM (4-12)
[2020-01-01 05:08] LABS: Osmolality,Calculated 291.3 MOS/KG (273-304)
[2020-01-01 05:12] LABS: Hypochromasia 1+; Lymphocytes 5 % (20-55); Platelet Estimate Adequate; Segmented Neutrophils 85 % (50-85); Total Cells Counted 100
[2020-01-01 05:13] LABS: Macrocytosis Slight; Ovalocytes Slight
[2020-01-01] MEDS: POTASSIUM CHLORIDE 20 MEQ TABLET PO PRN ×2 (06:00→09:40)
[2020-01-01] MEDS ORDERED: MAGNESIUM SULF RIDER 2 GM in PREMIX 1 EACH IV ONE (09:00)
[2020-01-01] MEDS: predniSONE 20 MG TABLET PO SCH (09:40)
[2020-01-01] MEDS: FOLIC ACID 1 MG TABLET PO SCH (09:40)
[2020-01-01] MEDS: LEVOFLOXACIN 750 MG TABLET PO SCH (09:40)
[2020-01-01] MEDS: PANTOPRAZOLE 40 MG VIAL IV SCH (09:40)
[2020-01-01] MEDS: LOSARTAN 50 MG TABLET PO SCH (09:40)
[2020-01-01] MEDS: METOPROLOL TARTRATE 100 MG TABLET PO SCH ×2 (09:40→21:17)
[2020-01-01] MEDS: INSULIN REGULAR 100 UNIT/ML SUBCUT SCH ×4 (10:22→21:16)
[2020-01-01] MEDS: DILTIAZEM 60 MG TABLET PO SCH ×2 (10:23→21:14)
[2020-01-01] MEDS: MONTELUKAST 10 MG TABLET PO SCH (21:17)
[2020-01-01] MEDS: ENOXAPARIN 40 MG/0.4 ML SYRINGE SUBCUT SCH (21:17)
[2020-01-01] MEDS: INSULIN GLARGINE 100 UNIT/ML SUBCUT SCH (21:43)
[2020-01-02] MEDS: ALBUTEROL INHALER 8 GM INH SCH ×5 (07:44→20:17)
[2020-01-02] MEDS: INSULIN REGULAR 100 UNIT/ML SUBCUT SCH ×4 (09:48→20:17)
[2020-01-02] MEDS: predniSONE 20 MG TABLET PO SCH (09:48)
[2020-01-02] MEDS: FOLIC ACID 1 MG TABLET PO SCH (09:48)
[2020-01-02] MEDS: DILTIAZEM 60 MG TABLET PO SCH ×2 (09:48→21:04)
[2020-01-02] MEDS: LEVOFLOXACIN 750 MG TABLET PO SCH (09:48)
[2020-01-02] MEDS: LOSARTAN 50 MG TABLET PO SCH (09:48)
[2020-01-02] MEDS: METOPROLOL TARTRATE 100 MG TABLET PO SCH ×2 (09:48→21:05)
[2020-01-02 10:23] LABS: Basophils % 0.2 % (0.0-0.8); Eosinophils # 0.1 10*3/uL (0.0-0.87); Eosinophils % 0.4 % (0.00-10.9); Hemoglobin 12.2 GM/DL (14.0-18.0); Immature Granulocytes % 4.1 %; Lymphocytes # 0.5 10*3/uL (1.4-4.0); Lymphocytes % 3.1 % (21.2-54.2); Mean Corpuscular Volume 94.1 FL (87-102); Mean Platelet Volume 10.3 FL (9.6-12.0); Neutrophils % 85.2 % (38.7-73.9); Platelet Count 430 T/CUMM (130-400); Red Blood Count 3.93 MC/CUMM (3.8-5.5); Red Cell Distribution Width 13.4 % (9.3-17.3); White Blood Count 14.5 T/CUMM (4-12)
[2020-01-02 10:42] LABS: Calcium 9.2 MG/DL (8.5-10.1); Osmolality,Calculated 282.8 MOS/KG (273-304)
[2020-01-02 10:42] LABS: Hypochromasia 1+; Lymphocytes 2 % (20-55); Platelet Estimate Adequate; Segmented Neutrophils 86 % (50-85); Total Cells Counted 100
[2020-01-02 10:43] LABS: Macrocytosis Slight
[2020-01-02] MEDS: POTASSIUM CHLORIDE 20 MEQ TABLET PO PRN ×3 (13:39→17:21)
[2020-01-02] MEDS ORDERED: TUBERCULIN SKIN TEST 0.1 ML SYRINGE INTRADERM ONE (15:33)
[2020-01-02] MEDS: MONTELUKAST 10 MG TABLET PO SCH (21:05)
[2020-01-02] MEDS: INSULIN GLARGINE 100 UNIT/ML SUBCUT SCH (21:05)
[2020-01-02] MEDS: ENOXAPARIN 40 MG/0.4 ML SYRINGE SUBCUT SCH (21:05)
[2020-01-03] MEDS: ALBUTEROL INHALER 8 GM INH SCH ×5 (00:22→15:39)
[2020-01-03 05:16] LABS: Basophils % 0.2 % (0.0-0.8); Eosinophils % 0.2 % (0.00-10.9); Hematocrit 35.9 VOL% (42.0-52.0); Hemoglobin 11.4 GM/DL (14.0-18.0); Immature Granulocytes % 2.7 %; Immature Granulocytes Absolute 0.33 #; Lymphocytes # 0.6 10*3/uL (1.4-4.0); Lymphocytes % 4.6 % (21.2-54.2); Mean Corpuscular HGB Conc 31.8 GM/DL (32-36); Mean Corpuscular Volume 96.2 FL (87-102); Mean Platelet Volume 10.6 FL (9.6-12.0); Neutrophils % 83.3 % (38.7-73.9); Platelet Count 359 T/CUMM (130-400); Red Blood Count 3.73 MC/CUMM (3.8-5.5); Red Cell Distribution Width 13.6 % (9.3-17.3); White Blood Count 12.2 T/CUMM (4-12)
[2020-01-03 05:39] LABS: Eosinophils 1 % (0-10); Hypochromasia 1+; Lymphocytes 3 % (20-55); Ovalocytes Slight; Platelet Estimate Adequate; Segmented Neutrophils 89 % (50-85); Total Cells Counted 100
[2020-01-03 05:40] LABS: Microcytosis Slight
[2020-01-03] MEDS: DILTIAZEM 60 MG TABLET PO SCH (08:11)
[2020-01-03] MEDS: INSULIN REGULAR 100 UNIT/ML SUBCUT SCH ×2 (08:11→12:31)
[2020-01-03] MEDS: LOSARTAN 50 MG TABLET PO SCH (08:12)
[2020-01-03] MEDS: FOLIC ACID 1 MG TABLET PO SCH (08:12)
[2020-01-03] MEDS: predniSONE 20 MG TABLET PO SCH (08:12)
[2020-01-03] MEDS: METOPROLOL TARTRATE 100 MG TABLET PO SCH (08:12)
[2020-01-03] MEDS: LEVOFLOXACIN 750 MG TABLET PO SCH (08:12)
[2020-01-03 12:34] VITALS: BP 114/68
== END 2020-01-03 16:28 | disposition home or self-care (01) | DRG 870 ==
LOC: N.ED 16:32 → SUATTDRO 19:17 → N.EDINP 19:17 → SUPCPDRO 19:17 → N.EDINP 23:41 → N.2E 12-17 00:01 → N.2W 12-19 08:44 → N.CC 12-21 10:53 → N.2W 12-31 12:34
PROVIDERS: ADMIT Internal Medicine; ATTEND Internal Medicine